=== PATIENT | male | born 1960 | race Caucasian/White ===

== ENCOUNTER 2021-04-01 06:07 | Outpatient (REF) | payer BC, SELFPAY ==
[2021-04-01 08:01] LABS: Hematocrit 42.7 % (42-52); Hemoglobin 14.7 g/dl (14.0-18.0); Mean Corpuscular HGB Conc 34.4 g/dl (31.0-36.0); Mean Corpuscular Hemoglobin 29.9 pg (27.0-33.0); Mean Corpuscular Volume 86.8 fL (80-98); Platelet Count 162 X10*3/uL (160-400); Red Blood Count 4.92 X10*6/uL (4.60-5.80); Red Cell Distribution Width 12.8 % (11.0-16.0); White Blood Count 7.3 X10*3/uL (4.8-10.8)
[2021-04-01 08:30] LABS: Alanine Aminotransferase 52 U/L (0-40); Albumin Level 4.5 g/dL (3.5-5.0); Alkaline Phosphatase 51 U/L (39-117); Anion Gap 15 (12-20); Aspartate Amino Transferase 28 U/L (5-37); Bilirubin Total 0.6 mg/dL (0.0-1.0); Blood Urea Nitrogen 16 mg/dL (9-16); Calcium 9.6 mg/dL (8.4-10.2); Carbon Dioxide 29 mmol/L (22-29); Chloride 101 mmol/L (96-108); Cholesterol 169 mg/dL; Estimated Glomerular Filt Rate > 60; Glucose Fasting 157 mg/dL (60-99); HDL Cholesterol 41 mg/dL; LDL Cholesterol Calculated 98 mg/dl; Sodium 141 mmol/L (135-145); Total Protein 7.1 g/dL (6.5-8.0); Triglycerides 152 mg/dL
[2021-04-01 08:52] LABS: Prostate Specific Antigen Scr 0.56 ng/mL (<0.05-4.0); TSH reflex Free T4 2.27 uIU/mL (0.32-4.0)
[2021-04-01 09:36] LABS: Creatinine Urine 169.72 mg/dL
[2021-04-01 09:43] LABS: Microalbum/Creatinine Ratio Ur 411.8 ug/mg cr
[2021-04-01 10:18] LABS: Estimated Average Glucose 183 mg/dL
== END 2021-04-01 06:08 | disposition home or self-care (01) ==
LOC: HO.LAB 06:07
PROVIDERS: PCP Physician Assistant; Visit Provider Physician Assistant
DX: I10 Essential (primary) hypertension (principal); E11.9 Type 2 diabetes mellitus without complications; Z12.5 Encounter for screening for malignant neoplasm of prostate
CPT/HCPCS: 36415; 80053; 80061; 82043; 83036; 84153; 84443; 85027

== ENCOUNTER → 2021-05-14 08:26 | Outpatient (BNVA) | payer BC, SELFPAY | PROVIDERS: PCP Physician Assistant; Visit Provider Orthopaedic Surgery ==

== ENCOUNTER 2021-11-15 07:11 | Outpatient (REF) | payer BC, SELFPAY ==
[2021-11-15 08:14] LABS: Hematocrit 40.9 % (42.0-52.0); Hemoglobin 13.8 g/dl (14.0-18.0); Mean Corpuscular HGB Conc 33.7 g/dl (31.0-36.0); Mean Corpuscular Hemoglobin 29.6 pg (27.0-33.0); Mean Corpuscular Volume 87.6 fL (80.0-98.0); Mean Platelet Volume 13.2 fL (9.4-12.4); Platelet Count 149 X10*3/uL (160-400); Red Blood Count 4.67 X10*6/uL (4.60-5.80); White Blood Count 7.1 X10*3/uL (4.8-10.8)
[2021-11-15 08:23] LABS: Estimated Average Glucose 180 mg/dL; Hemoglobin A1c % 7.9 %
[2021-11-15 08:34] LABS: Creatinine Urine 89.75 mg/dL
[2021-11-15 08:41] LABS: Alanine Aminotransferase 36 U/L (0-40); Albumin Level 4.4 g/dL (3.5-5.0); Alkaline Phosphatase 50 U/L (39-117); Anion Gap 11 (12-20); Aspartate Amino Transferase 21 U/L (5-37); Bilirubin Total 0.7 mg/dL (0.0-1.0); Blood Urea Nitrogen 18 mg/dL (9-16); Calcium 9.6 mg/dL (8.4-10.2); Carbon Dioxide 31 mmol/L (22-29); Chloride 102 mmol/L (96-108); Cholesterol 162 mg/dL; Estimated Glomerular Filt Rate > 60; Glucose Fasting 152 mg/dL (60-99); HDL Cholesterol 39 mg/dL; LDL Cholesterol Calculated 98 mg/dl; Potassium 4.1 mmol/L (3.3-5.1); Sodium 140 mmol/L (135-145); Total Protein 6.9 g/dL (6.5-8.0); Triglycerides 126 mg/dL
[2021-11-15 09:04] LABS: Microalbum/Creatinine Ratio Ur 551.5 ug/mg cr
== END 2021-11-15 07:12 | disposition home or self-care (01) ==
LOC: HO.LAB 07:11
PROVIDERS: PCP Physician Assistant; Visit Provider Physician Assistant
DX: I10 Essential (primary) hypertension (principal); E11.9 Type 2 diabetes mellitus without complications
CPT/HCPCS: 36415; 80053; 80061; 82043; 83036; 85027

== ENCOUNTER 2022-11-26 06:22 | Outpatient (REF) | payer BC, SELFPAY ==
[2022-11-26 07:19] LABS: Hematocrit 41.2 % (42.0-52.0); Hemoglobin 14.3 g/dl (14.0-18.0); Mean Corpuscular HGB Conc 34.7 g/dl (31.0-36.0); Mean Corpuscular Hemoglobin 30.2 pg (27.0-33.0); Mean Corpuscular Volume 87.1 fL (80.0-98.0); Mean Platelet Volume 12.3 fL (9.4-12.4); Platelet Count 159 X10*3/uL (160-400); Red Blood Count 4.73 X10*6/uL (4.60-5.80); Red Cell Distribution Width 13.2 % (11.0-16.0); White Blood Count 7.5 X10*3/uL (4.8-10.8)
[2022-11-26 07:47] LABS: Estimated Average Glucose 174 mg/dL; Hemoglobin A1c % 7.7 %
[2022-11-26 08:03] LABS: Alanine Aminotransferase 32 U/L (0-40); Albumin Level 4.4 g/dL (3.5-5.0); Alkaline Phosphatase 50 U/L (39-117); Anion Gap 15 (12-20); Aspartate Amino Transferase 20 U/L (5-37); Bilirubin Total 0.6 mg/dL (0.0-1.0); Blood Urea Nitrogen 18 mg/dL (9-16); Calcium 9.7 mg/dL (8.4-10.2); Carbon Dioxide 28 mmol/L (22-29); Chloride 101 mmol/L (96-108); Cholesterol 168 mg/dL; Estimated Glomerular Filt Rate > 60; Glucose Fasting 145 mg/dL (60-99); HDL Cholesterol 38 mg/dL; LDL Cholesterol Calculated 103 mg/dl; Potassium 4.1 mmol/L (3.3-5.1); Sodium 140 mmol/L (135-145); Total Protein 6.8 g/dL (6.5-8.0); Triglycerides 138 mg/dL
[2022-11-26 08:55] LABS: Creatinine Urine 107.23 mg/dL
[2022-11-26 09:00] LABS: TSH reflex Free T4 2.37 uIU/mL (0.32-4.0)
[2022-11-26 09:21] LABS: Microalbum/Creatinine Ratio Ur 681.7 ug/mg cr
== END 2022-11-26 06:23 | disposition home or self-care (01) ==
LOC: HO.LAB 06:22
PROVIDERS: PCP Physician Assistant; Visit Provider Physician Assistant
DX: E11.9 Type 2 diabetes mellitus without complications (principal); I10 Essential (primary) hypertension
CPT/HCPCS: 36415; 80053; 80061; 82043; 83036; 84443; 85027

== ENCOUNTER 2023-06-03 06:07 | Outpatient (REF) | payer BC, SELFPAY ==
[2023-06-03 07:00] LABS: Creatinine Urine 126.39 mg/dL
[2023-06-03 07:11] LABS: Microalbum/Creatinine Ratio Ur 690.7 ug/mg cr (<30)
[2023-06-03 07:21] LABS: Hematocrit 42.4 % (42.0-52.0); Hemoglobin 14.3 g/dl (14.0-18.0); Mean Corpuscular HGB Conc 33.7 g/dl (31.0-36.0); Mean Corpuscular Hemoglobin 29.9 pg (27.0-33.0); Mean Corpuscular Volume 88.5 fL (80.0-98.0); Mean Platelet Volume 12.9 fL (9.4-12.4); Platelet Count 167 X10*3/uL (160-400); Red Blood Count 4.79 X10*6/uL (4.60-5.80); Red Cell Distribution Width 12.9 % (11.0-16.0); White Blood Count 6.5 X10*3/uL (4.8-10.8)
[2023-06-03 07:41] LABS: Alanine Aminotransferase 28 U/L (0-40); Albumin Level 4.4 g/dL (3.5-5.0); Alkaline Phosphatase 49 U/L (39-117); Anion Gap 13 (12-20); Aspartate Amino Transferase 18 U/L (5-37); Bilirubin Total 0.4 mg/dL (0.0-1.0); Blood Urea Nitrogen 19 mg/dL (9-16); Calcium 9.6 mg/dL (8.4-10.2); Carbon Dioxide 31 mmol/L (22-29); Chloride 103 mmol/L (96-108); Cholesterol 154 mg/dL (<200); Estimated Glomerular Filt Rate > 60; Glucose Fasting 143 mg/dL (60-99); HDL Cholesterol 40 mg/dL (>40); LDL Cholesterol Calculated 94 mg/dL (<100); Potassium 3.9 mmol/L (3.3-5.1); Sodium 143 mmol/L (135-145); Total Protein 7.2 g/dL (6.5-8.0); Triglycerides 104 mg/dL (<150)
[2023-06-03 08:02] LABS: Prostate Specific Antigen Scr 0.66 ng/mL (<0.05-4.0)
== END 2023-06-03 06:08 | disposition home or self-care (01) ==
LOC: HO.LAB 06:07
PROVIDERS: PCP Physician Assistant; Visit Provider Physician Assistant
DX: Z12.5 Encounter for screening for malignant neoplasm of prostate (principal); E11.9 Type 2 diabetes mellitus without complications; I10 Essential (primary) hypertension
CPT/HCPCS: 36415; 80053; 80061; 82043; 82570; 84153; 85027

== ENCOUNTER 2023-06-10 12:53 | Outpatient (AMB) | payer BC, SELFPAY ==
[2023-06-10 12:56] VITALS: BP 160/96; PULSE 68; TEMP 36.7; O2SAT 98; BMI 32.1
--- NOTE | 2023-06-10 12:56 | A.OFFPC_ITS ---
Vital Signs 06/10/23 12:56 Height 5 ft 6 in Weight 199 lb 0.4 oz BMI 32.1 BP 160/96 H Blood Pressure Location Lt brachial Position Sitting Pulse 68 Pulse Source Pulse Oximeter Temp 98.0 F Temp Source Oral Pulse Oximetry (%) 98 Oxygen Delivery Method Room Air Intake Visit Reasons: Fever / Sinus Infection/ Shakiness Intake Note: pt states body chills, post nasal drip, sinus pain X5days Speech Lang Path Therapist Required: No Allergies erythromycin base Allergy (Unknown, Verified 06/10/23 12:56) Rash Tobacco use date assessed: 06/10/23 HPI HPI Comments History of Present Illness Details [age] year old male past medical history significant GERD,, hypertension, diabetes mellitus. Patient on Jose J Jarvis, presents today for same day a visit for 5 days of body aches, chills, has not check his temperature but feels like he has a fever and headache. Patient denies any sinus pain pressure, nasal congestion, cough, chest congestion. Patient states he did not swab himself for COVID. Patient encouraged to get swab for flu/rsv and covid. Patient replied well what would they do for my if I was positive . PAtient made aware if positive for COVID up to 5 days after symptoms start could treat with paxlovid. Also educated about symptomatic treatment. Patient made aware give 5 days of symptoms, likely viral infection and does not require antibiotic treatment at this time. [facility] Surgical History History of arthroscopy of shoulder History of surgery Family History (Updated 12/01/22 @ 13:36 by Hunter Jarvis PA-C) Father Diabetes Hypertension Liver tumor or cancer Mother No problems noted. Sister Eye cancer Social History (Updated 12/01/22 @ 13:37 by Hunter Jarvis PA-C) Housing: House Alcohol intake: never Patient Tobacco Use Status: Never used Tobacco e-Cigarette/Vaping Use: Never Used Second Hand Smoke Exposure: No Substance Use Type: Marijuana service: No Current occupational status: retired Cognitive needs: No Hearing needs: No Vision needs: No Questionnaire Thrive Questionnaire Date Thrive assessed: 12/01/22 AUDIT C Alcohol Use Questionnaire (AUDIT-C) 1. How often do you have a drink containing alcohol?: Never Total Score: 0 JULIEN-7 AMB Questionnaire JULIEN-7 Date JULIEN - 7 assessed: 12/01/22 Source: Developed by Drs. Christian Lorenzo, Emily Parham, Morro Soto and colleagues, with an educational jay jay from [employer]. Review of Systems Const Reports body aches, Reports chills, Reports fever(s) and Reports headache(s) Eyes Denies no additional complaints ENT Denies otalgia, Reports headache(s), Denies nasal congestion, Denies nasal discharge, Denies post nasal drip, Denies sinus pain, Denies sinus pressure and Denies sore throat Card Denies chest pain, Denies syncope, Denies rapid heart rate and Denies dyspnea Resp Denies cough and Denies dyspnea Musc Reports myalgias Neuro Denies syncope and Reports headache(s) Physical exam (Primary Care) Vital Signs: Last Vital Signs Temp 98.0 F 06/10/23 12:56 Pulse 68 06/10/23 12:56 BP 160/96 H 06/10/23 12:56 Pulse Ox 98 06/10/23 12:56 Oxygen Delivery Method Room Air 06/10/23 12:56 BMI result Body Mass Index 32.1 Tobacco/Smoking Status: Tobacco use Status Tobacco use date assessed 06/10/23 06/10/23 12:57 Patient Tobacco Use Status Never used Tobacco 06/10/23 12:57 e-Cigarette/Vaping Use Never Used 06/10/23 12:57 Thrive Assessment: Date of Thrive Assessment Date Thrive assessed 12/01/22 06/10/23 12:57 Const General: cooperative and no acute distress Orientation/consciousness: patient oriented x3 HENMT Head: Yes normocephalic and Yes atraumatic Ears: TM normal on the right and TM abnormal obstructed by cerumen on the left General nose exam: No nasal discharge present Face and sinus: Yes sinuses nontender Mouth: Normal oral and palatal mucosa present Throat: Yes posterior oropharynx normal and Yes uvula midline Eyes General: appearance normal, both eyes and all related structures Conjunctivae: conjunctivae normal Chest Chest palpation & inspection: normal inspection of the chest Resp Effort & Inspection: normal respiratory effort Auscultation: clear to auscultation bilaterally, no crackles, no rhonchi and no wheezes Cardio Rate: regular rate Rhythm: regular rhythm Heart sounds: S1 normal heart sound present and S2 normal heart sound present GI Inspection: Yes normal to inspection Neuro General: patient oriented x3 Extrem General: No edema Assessment and Plan Assessment & Plan (1) Fever: Code(s): R50.9 - Fever, unspecified (2) Body aches: Code(s): R52 - Pain, unspecified (3) Headache: Code(s): R51.9 - Headache, unspecified Plan: Patient advised swabbed for COVID, flu RSV given patient experiencing fever, body aches x5 days. Patient advised to treat symptomatically can take Tylenol and ibuprofen as needed for fever, chills, body aches and headaches. Please drink plently of fluids and rest. Symptoms consistent with viral infection. No need for antibiptic treatment at this time. Patient made he develops any new/ worsening symptoms such as sinus pain pressure, green/yellow sputum production and nasal drainage to follow up. Plan keep scheduled follow up with pcp. Orders: Orders SARS-CoV2/FLU/RSV Today R50.9 - Fever, unspecified Coding Level of Care Code Est Pt Level 3 (60403) Diagnoses Fever R50.9 Body aches R52 Headache R51.9
== END 2023-06-10 14:30 | disposition home or self-care (01) ==
PROVIDERS: PCP Physician Assistant; Visit Provider Nurse Practitioner Family
DX: R50.9 Fever, unspecified (principal); R51.9 Headache, unspecified
CPT/HCPCS: 99213

== ENCOUNTER 2023-06-15 08:03 | Outpatient (AMB) | payer BC, SELFPAY ==
[2023-06-15 08:41] VITALS: BP 150/96; PULSE 85; O2SAT 97; BMI 31.6
--- NOTE | 2023-06-15 08:41 | MHC.PC.OV ---
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 Accompanied by: Self / Same As Patient Allergies erythromycin base Allergy (Unknown, Verified 06/15/23 09:00) Rash Medication List - Last Reconciled 06/15/23 by Hunter Jarvis PA-C cholecalciferol (vitamin D3) 25 mcg PO DAILY lisinopril-hydrochlorothiazide 20-12.5 mg 1 tab PO BID 90 days metformin ER 2,000 mg (4 x 500 mg) PO DAILY 30 days omeprazole magnesium (Prilosec OTC) 20 mg PO DAILY rosuvastatin 20 mg PO DAILY Tobacco use date assessed: 06/10/23 Dental Screening Dental Screen Date: 06/15/23 Did you have a dental visit in the last 12 months?: No Did you have a dental problem in the last 6 months where you did not have access to dental care?: No Was dental information given to patient?: Patient has dentist HPI f/u DMII /HTN HPI Details Maurice is a 62 y/o M here today for a follow-up visit ? Pmhx significant fror HTN, HLd, Obesity, DMII. ? Concerns-- > recently recovering from COVID infection ? .. ? DMII:? Most recent A1c at 8.1., has been able to is a few lb since last office visit. .? patient reports he has been very active and decreasing his sugars and carbohydrates.? Unfortunately his diet has been poor and not following a low-carbohydrate diet. Patient continues to have microalbuminuria ? . ? HTN: REports his blood pressure has been stable, Systolics 120- 140s. Blood pressure today in office elevated .? Patient denies any headaches, vision issues or chest discomfort. ? .. ? HLD: Patient lipids have been well controlled will recheck lipid panel at next visit. ? . ? .. ? GERD : Report its controlled on PPI ( Prilosec 20 mg) .? He is followed by disc inspector and gets an EGD done every 5 years Laboratory Tests 11/26/22 11/26/22 06/03/23 06:29 06:29 06:10 Hgb Hgb A1c (Clinic) Hemoglobin A1c % 7.7 Cholesterol LDL Cholesterol, C alc Urine Microalbumin 731.0 873.0 06/03/23 06/03/23 06/15/23 06:16 06:16 08:43 Hgb 14.3 Hgb A1c (Clinic) 8.1 H Hemoglobin A1c % Cholesterol 154 LDL Cholesterol, C alc 94 Urine Microalbumin PFSH Surgical History History of surgery History of arthroscopy of shoulder Family History Father Diabetes Hypertension Liver tumor or cancer Mother No problems noted. Sister Eye cancer Housing: House Alcohol intake: never Patient Tobacco Use Status: Never used Tobacco e-Cigarette/Vaping Use: Never Used Second Hand Smoke Exposure: No Substance Use Type: Marijuana service: No Current occupational status: retired Cognitive needs: No Hearing needs: No Vision needs: No Questionnaire Thrive Questionnaire Date Thrive assessed: 12/01/22 JULIEN-7 AMB Questionnaire JULIEN-7 Date JULIEN - 7 assessed: 12/01/22 Source: Developed by Drs. Christian Lorenzo, Emily Parham, Morro Soto and colleagues, with an educational jay jay from [employer]. Review of Systems Const Denies headache(s) Eyes Denies loss of vision ENT Denies vertigo, Denies dizziness, Denies headache(s) and Denies sore throat Card Denies chest pain, Denies leg edema and Denies lightheadedness Resp Denies cough, Denies hemoptysis and Denies wheezing GI Denies abdominal pain, Denies melena, Denies constipation, Denies diarrhea and Denies vomiting Denies dysuria, Denies urinary frequency and Denies urinary urgency Musc Denies arthralgias, Denies joint swelling, Denies numbness and Denies tingling Neuro Denies Abnormal speech present, Denies behavioral changes, Denies vertigo, Denies dizziness, Denies headache(s), Denies loss of vision, Denies memory loss, Denies numbness and Denies tingling Psych Denies anxiety, Denies behavioral changes, Denies depression, Denies memory loss and Denies panic attacks Edward/Lymph Denies easy bleeding and Denies easy bruising Aller/Immun Denies wheezing Physical exam (Primary Care) Vital Signs: Last Vital Signs Pulse 85 06/15/23 08:41 BP 150/96 H 06/15/23 08:41 Pulse Ox 97 06/15/23 08:41 Oxygen Delivery Method Room Air 06/15/23 08:41 BMI result Body Mass Index 31.6 Tobacco/Smoking Status: Tobacco use Status Tobacco use date assessed 06/10/23 06/15/23 08:43 Patient Tobacco Use Status Never used Tobacco 06/15/23 08:43 e-Cigarette/Vaping Use Never Used 06/15/23 08:43 Thrive Assessment: Date of Thrive Assessment Date Thrive assessed 12/01/22 06/15/23 08:43 Const General: healthy appearing, no acute distress, alert and awake Nutritional Appearance: well nourished Orientation/consciousness: oriented to person, oriented to place and oriented to time HENMT Ears: TM's normal bilaterally General nose exam: Normal nasal mucous membranes and turbinates present Eyes Conjunctivae: conjunctivae normal Sclerae: sclerae normal Pupils: Equal, round and reactive pupils present Neck Neck: Yes no lymphadenopathy and Yes no JVD Thyroid: Thyroid normal Carotids: no bruits Resp Effort & Inspection: normal respiratory effort and not tachypneic Auscultation: no crackles, no rales, no rhonchi and no wheezes Cardio Rate: regular rate Rhythm: regular rhythm Heart sounds: no murmurs and normal S1 and S2 GI Palpation (GI): Soft to palpation, nontender, no hepatomegaly and no splenomegaly Auscultation: normal bowel sounds Skin General skin exam: no rashes or lesions noted and dry skin Neuro General: oriented to person, oriented to place and oriented to time Cranial nerves: Yes Equal, round and reactive pupils present Speech: No Abnormal speech present Gait exam (Neuro): Normal gait present Motor exam (neuro): no tremor noted Extrem Right upper extremity: full ROM Left upper extremity: full ROM Right lower extremity: full ROM; no edema Left lower extremity: full ROM; no edema Psych Mental Status: mental status grossly normal Speech and movement: Normal speech and movement present Affect: normal affect Attitude: cooperative Thought process: Normal thought process present Results AMB Hemoglobin A1c AMB Hemoglobin A1c 8.1 % Last Edit by Sofy Jones on 06/15/23 08:56 Results Reviewed Results Reviewed: Laboratory Last Values Hgb A1c (Clinic) 8.1 % (4.0-6.0) H 06/15/23 08:43 Assessment and Plan Assessment & Plan (1) HTN (hypertension): Code(s): I10 - Essential (primary) hypertension Qualifiers: Hypertension type: essential hypertension Qualified Code(s): I10 - Essential (primary) hypertension Plan: Blood pressures elevated today in office. He reports he has been sick with COVID recently and has been taking more ibuprofen for his myalgias. Will continue his current dose of antihypertensive medication with goal blood pressure to be below 140/90 (2) DMII (diabetes mellitus, type 2): Code(s): E11.9 - Type 2 diabetes mellitus without complications Qualifiers: Diabetes mellitus complication status: without complication Diabetes mellitus supervisor intermediates insulin use: without supervisor intermediates use Qualified Code(s): E11.9 - Type 2 diabetes mellitus without complications Plan: Patient's type 2 diabetes suboptimally controlled with A1c above 8. Will add on Ozempic for better blood sugar control and added benefit of weight loss. He continues to work on lifestyle modifications to reduce his A1c. Will continue his current dose of metformin at this time will continue to work on lifestyle modifications. Goal A1c to be below 7.0 (3) GERD (gastroesophageal reflux disease): Code(s): K21.9 - Gastro-esophageal reflux disease without esophagitis Qualifiers: Esophagitis presence: without esophagitis Qualified Code(s): K21.9 - Gastro-esophageal reflux disease without esophagitis Plan: Patient reports his GERD symptoms have been well maintained with daily use of Prilosec. He has been trying to stay way from gastric irritants (4) Obese: Code(s): E66.9 - Obesity, unspecified Qualifiers: Body mass index: BMI 33.0-33.9 Obesity classification: adult class 1 (BMI 30 - 34.9) Obesity type: due to excess calories Serious obesity comorbidity presence: with serious comorbidity Qualified Code(s): E66.09 - Other obesity due to excess calories; Z68.33 - Body mass index [BMI] 33.0-33.9, adult Plan: He does understand his BMI is over 30 will continue working on being more physically active and adapting to better eating habits to reduce his weight. (5) Impacted cerumen, bilateral: Code(s): H61.23 - Impacted cerumen, bilateral Plan: Released cerumen from left ear (6) Microalbuminuria: Code(s): R80.9 - Proteinuria, unspecified Plan: Continues to have elevated microalbuminuria. Has seen Nephrology the past. Will get ultrasound kidneys to evaluate for any cystic formations. Orders: Orders US renal BI 06/15/23 R80.9 - Proteinuria, unspecified Comprehensive [place]. Panel Fast 06/15/23 E11.9 - Type 2 diabetes mellitus without complications Complete Blood Count no Diff 06/15/23 E11.9 - Type 2 diabetes mellitus without complications AMB Hemoglobin A1c 06/15/23 E11.9 - Type 2 diabetes mellitus without complications Microalbumin, Random (w Creat) 06/15/23 I10 - Essential (primary) hypertension Lipid Panel 06/15/23 E11.9 - Type 2 diabetes mellitus without complications Medications: New semaglutide (Ozempic) for 4 weeks; then increase to 0.5 mg every week 0.25 mg (0.368 mL) subcut QWEEK 4 weeks 3 mL 1RF E11.9 - Type 2 diabetes mellitus without complications Coding Level of Care Code Est Pt Level 4 (60801) Diagnoses Essential hypertension I10 Hypertension type: essential hypertension Type 2 diabetes mellitus without complication, without long-term current use of insulin E11.9 Diabetes mellitus complication status: without complication Diabetes mellitus senior living insulin use: without senior living use Gastroesophageal reflux disease without esophagitis K21.9 Esophagitis presence: without esophagitis Class 1 obesity due to excess calories with serious comorbidity and body mass index (BMI) of 33.0 to 33.9 in adult E66.09; Z68.33 Body mass index: BMI 33.0-33.9 Obesity classification: adult class 1 (BMI 30 - 34.9) Obesity type: due to excess calories Serious obesity comorbidity presence: with serious comorbidity Impacted cerumen, bilateral H61.23 Microalbuminuria R80.9
== END 2023-06-15 09:40 | disposition home or self-care (01) ==
LOC: HO.HMGH 08:03
PROVIDERS: PCP Physician Assistant; Visit Provider Physician Assistant
DX: E11.9 Type 2 diabetes mellitus without complications (principal)
CPT/HCPCS: 83036; 99214

== ENCOUNTER 2023-06-24 11:47 | Outpatient (AMB) | payer BC, SELFPAY ==
[2023-06-24 13:36] VITALS: BP 160/90; PULSE 70; TEMP 36.1; O2SAT 96; BMI 31.8
--- NOTE | 2023-06-24 13:36 | MHC.OFFWIV ---
Intake Vital Signs 06/24/23 13:36 Height 5 ft 6 in Weight 197 lb BMI 31.8 BP 160/90 H Blood Pressure Location Rt brachial Position Sitting Pulse 70 Pulse Source Pulse Oximeter Temp 97.0 F Temp Source Temporal Artery Scan Pulse Oximetry (%) 96 Oxygen Delivery Method Room Air Intake Visit Reasons: EST/post covid symptoms/[phone] Intake Note: pt is here today for post covid symptoms start 21 days ago Patient Tobacco Use Status: Never used Tobacco Allergies erythromycin base Allergy (Unknown, Verified 06/24/23 13:37) Rash Do you need a note to return to daycare/school/sports/work: No HPI HPI Comments History of Present Illness Details This is a 62-year-old male with a past medical history of gastroesophageal reflux disease, hyperlipidemia, hypertension, spe-[id number]-[id number] diabetes who was diagnosed with COVID-19 21 days ago presenting for evaluation of a headache, ear pain, postnasal drip and shortness of breath with exertion that has been ongoing for the past 3 weeks. Patient denies having any new fevers, chills, chest pain, hemoptysis or sputum production. [facility] Surgical History History of surgery History of arthroscopy of shoulder Family History Father Diabetes Hypertension Liver tumor or cancer Mother No problems noted. Sister Eye cancer Social History Housing: House Alcohol intake: never Patient Tobacco Use Status: Never used Tobacco e-Cigarette/Vaping Use: Never Used Second Hand Smoke Exposure: No Substance Use Type: Marijuana service: No Current occupational status: retired Cognitive needs: No Hearing needs: No Vision needs: No Review of Systems Const All systems reviewed & are unremarkable except as noted in HPI and below Denies chills, Reports fatigue and Denies fever(s) Eyes Reports as per HPI ENT Reports no additional complaints, Reports dry mouth and Reports otalgia (bilateral) Card Reports as per HPI, Reports dyspnea and Reports dyspnea on exertion Resp Reports as per HPI, Reports cough, Denies hemoptysis, Denies excessive phlegm production, Reports dyspnea, Reports dyspnea on exertion and Denies wheezing GI Reports as per HPI Neuro Reports no additional complaints Psych Reports no additional complaints Endo Reports fatigue Aller/Immun Denies wheezing Physical Exam Vital Signs: Last Vital Signs Temp 97.0 F 06/24/23 13:36 Pulse 70 06/24/23 13:36 BP 160/90 H 06/24/23 13:36 Pulse Ox 96 06/24/23 13:36 Oxygen Delivery Method Room Air 06/24/23 13:36 BMI result Body Mass Index 31.8 Patient is afebrile and not hypoxic. Const General: cooperative, healthy appearing, comfortable, no acute distress, alert and awake; No ill appearing or lethargic Nutritional Appearance: well nourished Orientation/consciousness: patient oriented x3 and No lethargic Limitations: no limitations HEENT Head: Yes normal to inspection Ears: hearing grossly normal bilaterally, external ears normal, TM normal on the right and left TM abnormal (cerumen impaction) General nose exam: Normal external nose present Face and sinus: Yes normal facial exam and Yes sinuses nontender Mouth: Normal oral and palatal mucosa present Teeth and gingiva: dentition normal Throat: Yes postnasal drainage Eyes Conjunctivae: conjunctivae normal Sclerae: sclerae normal Pupils: Equal, round and reactive pupils present EOM: EOMs intact bilaterally Neck Lymphatic: no lymphadenopathy noted Resp Effort & Inspection: no audible wheezes, no cough and respiratory effort not decreased Auscultation: no wheezes and diminished lung sounds on the left in the lower lung grant Cardio Rate: regular rate Rhythm: regular rhythm Skin General skin exam: no rashes or lesions noted Neuro General: patient oriented x3 Cranial nerves: Yes Equal, round and reactive pupils present Psych Appearance: grossly normal Mental Status: mental status grossly normal Affect: normal affect Attitude: cooperative Insight: Good insight present (Psych) Judgement: Good judgement present (Psych) Results Reviewed Results Reviewed: CXR reviewed with patient. Assessment & Plan Assessment & Plan (1) Cough: Code(s): R05.9 - Cough, unspecified Qualifiers: Cough type: chronic Qualified Code(s): R05.3 - Chronic cough Plan: OTC antihistamine for postnasal drip, Tylenol as needed for headache and follow-up with PCP in 2 weeks; sooner for any worsening symptoms. (2) Post covid-19 condition, unspecified: Code(s): U09.9 - Post COVID-19 condition, unspecified Plan Follow up PCP 2 weeks for a reevaluation of symptoms. Orders: Orders XR chest 2V Today R05.9 - Cough, unspecified, U09.9 - Post COVID-19 condition, unspecified Coding Level of Care Code Est Pt Level 3 (70471) Diagnoses Chronic cough R05.3 Cough type: chronic Post covid-19 condition, unspecified U09.9 Time Spent (min) 25
== END 2023-06-24 14:46 | disposition home or self-care (01) ==
PROVIDERS: PCP Physician Assistant; Visit Provider Physician Assistant
DX: R05.3 Chronic cough (principal); U09.9 Post COVID-19 condition, unspecified
CPT/HCPCS: 99213

== ENCOUNTER 2023-06-24 13:55 | Outpatient (REF) | payer BC, SELFPAY ==
--- NOTE | ~2023-06-24 | XR_ITS ---
EXAMINATION: XR CHEST 2 VIEW CLINICAL INFORMATION: Cough, decreased breath sounds at left base COMPARISON: None TECHNIQUE: PA and lateral views of the chest obtained. FINDINGS: The lungs are clear. There are no pleural effusions. The cardiomediastinal silhouette is normal. XR/XR chest 2V IMPRESSION: No acute cardiopulmonary disease.
== END 2023-06-24 13:56 | disposition home or self-care (01) ==
LOC: HO.HMGCX 13:55
PROVIDERS: PCP Physician Assistant; Visit Provider Physician Assistant
DX: R05.9 Cough, unspecified (principal); U09.9 Post COVID-19 condition, unspecified
CPT/HCPCS: 71046

== ENCOUNTER 2023-07-16 09:36 | Outpatient (REF) | payer BC, SELFPAY ==
--- NOTE | ~2023-07-16 | US_ITS ---
EXAMINATION: US RETROPERITONEAL LIMITED (RENAL ONLY) CLINICAL INFORMATION: Proteinuria, unspecified. COMPARISON: None available. TECHNIQUE: Real-time imaging of the kidneys. FINDINGS: RIGHT KIDNEY: 10.6 x 6.9 x 6.4 cm (SAG x AP x TRV). The kidney is normal in size, contour, and echogenicity. Renal cortical thickness is normal. No renal calculi or hydronephrosis. Multiple benign parapelvic and cortical Bosniak class I renal cysts are noted, the largest measuring 1.9 cm which require no additional imaging or follow-up. No solid renal masses are seen. LEFT KIDNEY: 10.9 x 5.7 x 4.8 cm (SAG x AP x TRV). The kidney is normal in size, contour, and echogenicity. Renal cortical thickness is normal. No calculi or focal parenchymal lesions. Mild fullness in the left renal pelvis but no gross hydronephrosis. US/US renal BI IMPRESSION: No significant abnormality is seen.
== END 2023-07-16 09:37 | disposition home or self-care (01) ==
LOC: HO.US 09:36
PROVIDERS: PCP Physician Assistant; Visit Provider Physician Assistant
DX: R80.9 Proteinuria, unspecified (principal)
CPT/HCPCS: 76775

== ENCOUNTER 2023-07-22 09:37 | Outpatient (AMB) | payer BC, SELFPAY ==
--- NOTE | 2023-07-22 10:06 | MHC.PC.OV ---
Vital Signs 07/22/23 10:07 Height 5 ft 6 in Weight 188 lb BMI 30.3 BP 142/80 H Blood Pressure Location Lt brachial Position Sitting Pulse 89 Pulse Source Pulse Oximeter Pulse Oximetry (%) 99 Oxygen Delivery Method Room Air Intake Visit Reasons: Follow up post covid/ lingering symptoms Fly Fishing Guide Required: No Ground Helper Street Railway: Not Required per policy Accompanied by: Self / Same As Patient Allergies erythromycin base Allergy (Unknown, Verified 07/22/23 11:01) Rash Medication List - Last Reconciled 07/22/23 by Hunter Jarvis PA-C cholecalciferol (vitamin D3) 25 mcg PO DAILY lisinopril-hydrochlorothiazide 20-12.5 mg 1 tab PO BID 90 days metformin ER 2,000 mg (4 x 500 mg) PO DAILY 30 days omeprazole magnesium (Prilosec OTC) 20 mg PO DAILY rosuvastatin 20 mg PO DAILY semaglutide (Ozempic) 0.25 mg (0.368 mL) subcut QWEEK 4 weeks Tobacco use date assessed: 06/10/23 Dental Screening Dental Screen Date: 07/22/23 Did you have a dental visit in the last 12 months?: Yes Did you have a dental problem in the last 6 months where you did not have access to dental care?: No Was dental information given to patient?: Patient has dentist HPI Follow up post covid/ lingering symptoms HPI Details Patient is a 62-year-old male here today for follow-up visit. Ports having COVID 2 months ago. He continues to have bilateral ear and frontal sinus pressure and pain. Does report having a buzzing sensation in his head from time to time. He otherwise denies any fevers, cough, stiff neck or vision issues. He has been seen multiple times at the walk-in clinic and PCP office. He did get recent chest x-ray which was normal. [facility], [facility] Surgical History History of surgery History of arthroscopy of shoulder Family History Father Diabetes Hypertension Liver tumor or cancer Mother No problems noted. Sister Eye cancer Social History Housing: House Alcohol intake: never Patient Tobacco Use Status: Never used Tobacco e-Cigarette/Vaping Use: Never Used Second Hand Smoke Exposure: No Substance Use Type: Marijuana service: No Current occupational status: retired Cognitive needs: No Hearing needs: No Vision needs: No Questionnaire Thrive Questionnaire Date Thrive assessed: 12/01/22 JULIEN-7 AMB Questionnaire JULIEN-7 Date JULIEN - 7 assessed: 12/01/22 Source: Developed by Drs. Christian Lorenzo, Emily Parham, Morro Soto and colleagues, with an educational jay jay from [employer]. Review of Systems Const Denies headache(s) Eyes Denies loss of vision ENT Denies vertigo, Denies dizziness, Denies headache(s) and Denies sore throat Card Denies chest pain, Denies leg edema and Denies lightheadedness Resp Denies cough, Denies hemoptysis and Denies wheezing GI Denies abdominal pain, Denies melena, Denies constipation, Denies diarrhea and Denies vomiting Denies dysuria, Denies urinary frequency and Denies urinary urgency Musc Denies arthralgias, Denies joint swelling, Denies numbness and Denies tingling Neuro Denies Abnormal speech present, Denies behavioral changes, Denies vertigo, Denies dizziness, Denies headache(s), Denies loss of vision, Denies memory loss, Denies numbness and Denies tingling Psych Denies anxiety, Denies behavioral changes, Denies depression, Denies memory loss and Denies panic attacks Edward/Lymph Denies easy bleeding and Denies easy bruising Aller/Immun Denies wheezing Physical exam (Primary Care) Vital Signs: Last Vital Signs Pulse 89 07/22/23 10:07 BP 142/80 H 07/22/23 10:07 Pulse Ox 99 07/22/23 10:07 Oxygen Delivery Method Room Air 07/22/23 10:07 BMI result Body Mass Index 30.3 Tobacco/Smoking Status: Tobacco use Status Tobacco use date assessed 06/10/23 07/22/23 10:07 Patient Tobacco Use Status Never used Tobacco 07/22/23 10:07 e-Cigarette/Vaping Use Never Used 07/22/23 10:07 Thrive Assessment: Date of Thrive Assessment Date Thrive assessed 12/01/22 07/22/23 10:07 Const General: healthy appearing, no acute distress, alert and awake Nutritional Appearance: well nourished Orientation/consciousness: oriented to person, oriented to place and oriented to time HENMT Ears: TM's normal bilaterally General nose exam: Normal nasal mucous membranes and turbinates present Eyes Conjunctivae: conjunctivae normal Sclerae: sclerae normal Pupils: Equal, round and reactive pupils present Neck Neck: Yes no lymphadenopathy and Yes no JVD Thyroid: Thyroid normal Carotids: no bruits Resp Effort & Inspection: normal respiratory effort and not tachypneic Auscultation: no crackles, no rales, no rhonchi and no wheezes Cardio Rate: regular rate Rhythm: regular rhythm Heart sounds: no murmurs and normal S1 and S2 GI Palpation (GI): Soft to palpation, nontender, no hepatomegaly and no splenomegaly Auscultation: normal bowel sounds Skin General skin exam: no rashes or lesions noted and dry skin Neuro General: oriented to person, oriented to place and oriented to time Cranial nerves: Yes Equal, round and reactive pupils present Speech: No Abnormal speech present Gait exam (Neuro): Normal gait present Motor exam (neuro): no tremor noted Extrem Right upper extremity: full ROM Left upper extremity: full ROM Right lower extremity: full ROM; no edema Left lower extremity: full ROM; no edema Psych Mental Status: mental status grossly normal Speech and movement: Normal speech and movement present Affect: normal affect Attitude: cooperative Thought process: Normal thought process present Office Procedures Cerumen Removal From which ear canal was the cerumen removed: left Removal: irrigation and otoscope w/curette Notes: patient tolerated procedure well, no complications and ear canal clear 83181-Hlf Irrigation/Lavage Assessment and Plan Assessment & Plan (1) Sinus infection: Code(s): J32.9 - Chronic sinusitis, unspecified Qualifiers: Chronicity: acute Recurrence: recurrent Sinusitis location: frontal Qualified Code(s): J01.11 - Acute recurrent frontal sinusitis Plan: Patient has had a 8 week history status post COVID infection of frontal sinus pain and bilateral ear congestion and pain. Will supply with antibiotic and a prednisone taper for possible sinus infection. (2) Left ear impacted cerumen: Code(s): H61.22 - Impacted cerumen, left ear Plan: As per office note, left ear clear after lavage. Patient tolerated procedure well Medications: New amoxicillin-pot clavulanate 875-125 mg 1 tab PO BID 10 days 20 tabs 0RF J01.11 - Acute recurrent frontal sinusitis prednisone take 3 tabs x 2 days , take 2 tabs x 2 days , take 1 tab x 2 days 10 mg PO DIRECTED 6 days 12 tabs 0RF J01.11 - Acute recurrent frontal sinusitis nystatin administer 1/2 of dose in each side of the mouth 500,000 units (5 mL) PO BID 10 days PRN 60 mL 0RF mouth irritation B37.0 - Candidal stomatitis Coding Level of Care Code Est Pt Level 3 (16470) Diagnoses Acute recurrent frontal sinusitis J01.11 Chronicity: acute Recurrence: recurrent Sinusitis location: frontal Left ear impacted cerumen H61.22 CPT Codes Office Procedure - CPT: 19284-Hmt Irrigation/Lavage ([id number])
[2023-07-22 10:07] VITALS: BP 142/80; PULSE 89; O2SAT 99; BMI 30.3
== END 2023-07-22 11:30 | disposition home or self-care (01) ==
PROVIDERS: PCP Physician Assistant; Visit Provider Physician Assistant
DX: J01.11 Acute recurrent frontal sinusitis (principal); H61.22 Impacted cerumen, left ear
CPT/HCPCS: 69210; 99213

== ENCOUNTER 2023-09-15 06:05 | Outpatient (REF) | payer BC, SELFPAY ==
[2023-09-15 07:00] LABS: Hematocrit 43.8 % (42.0-52.0); Hemoglobin 15.4 g/dl (14.0-18.0); Mean Corpuscular HGB Conc 35.2 g/dl (31.0-36.0); Mean Corpuscular Hemoglobin 30.7 pg (27.0-33.0); Mean Corpuscular Volume 87.4 fL (80.0-98.0); Mean Platelet Volume 12.8 fL (9.4-12.4); Platelet Count 163 X10*3/uL (160-400); Red Blood Count 5.01 X10*6/uL (4.60-5.80); Red Cell Distribution Width 13.1 % (11.0-16.0); White Blood Count 7.6 X10*3/uL (4.8-10.8)
[2023-09-15 07:13] LABS: Alanine Aminotransferase 23 U/L (0-40); Albumin Level 4.4 g/dL (3.5-5.0); Alkaline Phosphatase 42 U/L (39-117); Anion Gap 13 (12-20); Aspartate Amino Transferase 15 U/L (5-37); Bilirubin Total 0.5 mg/dL (0.0-1.0); Blood Urea Nitrogen 17 mg/dL (9-16); Calcium 9.8 mg/dL (8.4-10.2); Carbon Dioxide 32 mmol/L (22-29); Chloride 102 mmol/L (96-108); Cholesterol 166 mg/dL (<200); Estimated Glomerular Filt Rate > 60; Glucose Fasting 123 mg/dL (60-99); HDL Cholesterol 40 mg/dL (>40); LDL Cholesterol Calculated 97 mg/dL (<100); Potassium 3.7 mmol/L (3.3-5.1); Sodium 143 mmol/L (135-145); Total Protein 7.4 g/dL (6.5-8.0); Triglycerides 149 mg/dL (<150)
[2023-09-15 08:21] LABS: Creatinine Urine 193.11 mg/dL
[2023-09-15 08:41] LABS: Microalbum/Creatinine Ratio Ur 273.9 ug/mg cr (<30)
== END 2023-09-15 06:06 | disposition home or self-care (01) ==
LOC: HO.LAB 06:05
PROVIDERS: PCP Physician Assistant; Visit Provider Physician Assistant
DX: E11.9 Type 2 diabetes mellitus without complications (principal); I10 Essential (primary) hypertension
CPT/HCPCS: 36415; 80053; 80061; 82043; 82570; 85027

== ENCOUNTER 2023-09-22 07:49 | Outpatient (AMB) | payer BC, SELFPAY ==
[2023-09-22 08:28] VITALS: BP 132/80; BMI 30.5
--- NOTE | 2023-09-22 08:28 | MHC.PC.OV ---
Vital Signs 09/22/23 08:28 Height 5 ft 6 in Weight 189 lb BMI 30.5 BP 132/80 Blood Pressure Location Lt brachial Position Sitting Intake Visit Reasons: Follow-up diabetes Intake Note: Patient here for a follow up DM Product Assurance Engineer Required: No Accompanied by: Self / Same As Patient Allergies erythromycin base Allergy (Unknown, Verified 09/22/23 08:41) Rash Medication List - Last Reconciled 09/22/23 by Hunter Jarvis PA-C cholecalciferol (vitamin D3) 25 mcg PO DAILY lisinopril-hydrochlorothiazide 20-12.5 mg 1 tab PO BID 90 days omeprazole magnesium (Prilosec OTC) 20 mg PO DAILY rosuvastatin 20 mg PO DAILY semaglutide (Ozempic) 0.25 mg (0.368 mL) subcut QWEEK 4 weeks Tobacco use date assessed: 09/22/23 Fall risk assessment: No Falls in past year Last assessed Fall Risk: 09/22/23 Dental Screening Dental Screen Date: 09/22/23 Did you have a dental visit in the last 12 months?: No Did you have a dental problem in the last 6 months where you did not have access to dental care?: No Was dental information given to patient?: Patient has dentist HPI Follow-up diabetes HPI Details Maurice is a 63 y/o M here today for a follow-up visit ? Pmhx significant fror HTN, HLd, Obesity, DMII. ? Concerns-- > recently recovering from COVID infection ? .. ? DMII:? Most recent A1c is 6.7 from 8.1., has been able to is a few lb since last office visit. Reports he was sick for two months with COVID in oral thrush. Now doing much better. Has lost weight. He is discontinue the use of metformin. He continues on Ozempic 0.5 mg weekly Patient continues to have microalbuminuria though has improved ? . ? HTN: REports his blood pressure has been stable, Systolics 120- 140s. Blood pressure today in office acceptable .? Patient denies any headaches, vision issues or chest discomfort. ? .. ? HLD: Patient lipids have been well controlled will recheck lipid panel at next visit. ? . ? .. ? GERD : Report its controlled on PPI ( Prilosec 20 mg) .? 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 Sister Eye cancer Social History Housing: House Alcohol intake: never Patient Tobacco Use Status: Never used Tobacco e-Cigarette/Vaping Use: Never Used Second Hand Smoke Exposure: No Substance Use Type: Marijuana service: No Current occupational status: retired Cognitive needs: No Hearing needs: No Vision needs: No Questionnaire PHQ-9 Over the last 2 weeks, how often have you been bothered by any of the following problems? 1. Little interest or pleasure in doing things: not at all 2. Feeling down, depressed, or hopeless: not at all 3. Trouble falling or staying asleep, or sleeping too much: not at all 4. Feeling tired or having little energy: not at all 5. Poor appetite or overeating: not at all 6. Feeling bad about yourself - or that you are a failure or have let yourself or your family down: not at all 7. Trouble concentrating on things, such as reading the newspaper or watching television: not at all 8. Moving or speaking so slowly that other people could have noticed. Or the opposite - being so fidgety or restless that you have been moving around a lot more than usual: not at all 9. Thoughts that you would be better off or of hurting yourself in some way: not at all Total score: 0 Depression Screening Interpretation: Negative Depression Screening Done: Yes 32810 - PHQ-9 Billing: Yes Source: Developed by Drs. Christian Lorenzo, Morro Rosales and colleagues, with an educational jay jay from [employer]. Thrive Questionnaire Date Thrive assessed: 09/22/23 I am a: Patient What is your living situation today?: I have a steady place to live Within the past 12 months, did the food you bought not last and you didn't have the money to get more?: Never true Within the past 12 months, did you worry whether your food would run out before you got money to buy more?: Never true Do you have trouble paying for medicines?: No Do you have trouble getting transportation to medical appointments?: No Do you have trouble paying your heating and electricity bill?: No Do you have trouble taking care of your child, family member or friend?: No Do you have trouble with day-to-day activities such as bathing, preparing meals, shopping, managing finances, etc.?: No Are you currently unemployed and looking for a job?: No Are you interested in more education?: No Please select the resources that you would like help with: None Currently or been in a relationship where the following occur: no concerns reported THRIVE Score: 0 AUDIT C Alcohol Use Questionnaire (AUDIT-C) 1. How often do you have a drink containing alcohol?: Never Total Score: 0 JULIEN-7 AMB Questionnaire JULIEN-7 Date JULIEN - 7 assessed: 09/22/23 Feeling nervous, anxious, or on edge: 0 = Not at all Not being able to stop or control worryin = Not at all Worrying too much about different things: 0 = Not at all Trouble relaxin = Not at all Being so restless that it is hard to sit still: 0 = Not at all Becoming easily annoyed or irritable: 0 = Not at all Feeling afraid as if something awful might happen: 0 = Not at all Total JULIEN-7 score (0-4 normal; 5-9 mild; 10-14 moderate; 15-21 severe): 0 Source: Developed by Emily Ya Kurt Kroenke and colleagues, with an educational jay jay from [employer]. JULIEN-7 Assessment Billing JULIEN-7 Assessment Tool: JULIEN-7 Assessment 65803 Review of Systems Const Denies headache(s) Eyes Denies loss of vision ENT Denies vertigo, Denies dizziness, Denies headache(s) and Denies sore throat Card Denies chest pain, Denies leg edema and Denies lightheadedness Resp Denies cough, Denies hemoptysis and Denies wheezing GI Denies abdominal pain, Denies melena, Denies constipation, Denies diarrhea and Denies vomiting Denies dysuria, Denies urinary frequency and Denies urinary urgency Musc Denies arthralgias, Denies joint swelling, Denies numbness and Denies tingling Neuro Denies Abnormal speech present, Denies behavioral changes, Denies vertigo, Denies dizziness, Denies headache(s), Denies loss of vision, Denies memory loss, Denies numbness and Denies tingling Psych Denies anxiety, Denies behavioral changes, Denies depression, Denies memory loss and Denies panic attacks Edward/Lymph Denies easy bleeding and Denies easy bruising Aller/Immun Denies wheezing Physical exam (Primary Care) Vital Signs: Last Vital Signs BP 132/80 09/22/23 08:28 BMI result Body Mass Index 30.5 BMI Assessment/Plan discussion: High Tobacco/Smoking Status: Tobacco use Status Tobacco use date assessed 09/22/23 09/22/23 08:38 Patient Tobacco Use Status Never used Tobacco 09/22/23 08:38 e-Cigarette/Vaping Use Never Used 09/22/23 08:38 PHQ-9: PHQ-9 Score PHQ-9: Total score 0 09/22/23 08:38 Depression Screening Interpretation: Negative Thrive Assessment: Date of Thrive Assessment Date Thrive assessed 09/22/23 09/22/23 08:38 Currently or been in a relationship where the following occur: no concerns reported Const Other: OBESE General: healthy appearing, no acute distress, alert and awake Nutritional Appearance: well nourished Orientation/consciousness: oriented to person, oriented to place and oriented to time HENMT Ears: TM's normal bilaterally General nose exam: Normal nasal mucous membranes and turbinates present Eyes Conjunctivae: conjunctivae normal Sclerae: sclerae normal Pupils: Equal, round and reactive pupils present Neck Neck: Yes no lymphadenopathy and Yes no JVD Thyroid: Thyroid normal Carotids: no bruits Resp Effort & Inspection: normal respiratory effort and not tachypneic Auscultation: no crackles, no rales, no rhonchi and no wheezes Cardio Rate: regular rate Rhythm: regular rhythm Heart sounds: no murmurs and normal S1 and S2 GI Palpation (GI): Soft to palpation, nontender, no hepatomegaly and no splenomegaly Auscultation: normal bowel sounds Skin General skin exam: no rashes or lesions noted and dry skin Neuro General: oriented to person, oriented to place and oriented to time Cranial nerves: Yes Equal, round and reactive pupils present Speech: No Abnormal speech present Gait exam (Neuro): Normal gait present Motor exam (neuro): no tremor noted Extrem Right upper extremity: full ROM Left upper extremity: full ROM Right lower extremity: full ROM; no edema Left lower extremity: full ROM; no edema Psych Mental Status: mental status grossly normal Speech and movement: Normal speech and movement present Affect: normal affect Attitude: cooperative Thought process: Normal thought process present Results AMB Hemoglobin A1c AMB Hemoglobin A1c 6.7 % Last Edit by IRA Munguia on 09/22/23 08:38 Results Reviewed Results Reviewed: Laboratory Last Values Hgb A1c (Clinic) 6.7 % (4.0-6.0) H 09/22/23 08:38 Assessment and Plan Assessment & Plan (1) HTN (hypertension): Code(s): I10 - Essential (primary) hypertension Qualifiers: Hypertension type: essential hypertension Qualified Code(s): I10 - Essential (primary) hypertension Plan: Patient's blood pressure acceptable today in office. Has lost weight since last office visit. Feeling much better status post COVID infection.. Will continue his current dose of antihypertensive medication with goal blood pressure to be below 140/90 (2) DMII (diabetes mellitus, type 2): Code(s): E11.9 - Type 2 diabetes mellitus without complications Qualifiers: Diabetes mellitus jail insulin use: without jail use Diabetes mellitus complication status: without complication Qualified Code(s): E11.9 - Type 2 diabetes mellitus without complications Plan: Patient's type 2 diabetes suboptimally controlled with A1c above 8. Will add on Ozempic for better blood sugar control and added benefit of weight loss. He continues to work on lifestyle modifications to reduce his A1c. Will continue his current dose of metformin at this time will continue to work on lifestyle modifications. Goal A1c to be below 7.0 (3) GERD (gastroesophageal reflux disease): Code(s): K21.9 - Gastro-esophageal reflux disease without esophagitis Qualifiers: Esophagitis presence: without esophagitis Qualified Code(s): K21.9 - Gastro-esophageal reflux disease without esophagitis Plan: Patient reports his GERD symptoms have been well maintained with daily use of Prilosec. He has been trying to stay way from gastric irritants (4) Microalbuminuria: Code(s): R80.9 - Proteinuria, unspecified Plan: Continues to have elevated microalbuminuria. Has seen Nephrology the past. Will get ultrasound kidneys to evaluate for any cystic formations. Orders: Orders Comprehensive [place]. Panel Fast Today I10 - Essential (primary) hypertension Lipid Panel Today E11.9 - Type 2 diabetes mellitus without complications Complete Blood Count no Diff Today E11.9 - Type 2 diabetes mellitus without complications Prostate Specific Antigen Scr Today E11.9 - Type 2 diabetes mellitus without complications, Z12.5 - Encounter for screening for malignant neoplasm of prostate Medications: Changed From semaglutide (Ozempic) for 4 weeks; then increase to 0.5 mg every week 0.25 mg (0.368 mL) subcut QWEEK 4 weeks 3 mL 1RF E11.9 - Type 2 diabetes mellitus without complications To semaglutide (Ozempic) for 4 weeks; then increase to 0.5 mg every week 0.5 mg (0.736 mL) subcut QWEEK 4 weeks 3 mL 3RF E11.9 - Type 2 diabetes mellitus without complications Coding Level of Care Code Est Pt Level 4 (37049) Diagnoses Essential hypertension I10 Hypertension type: essential hypertension Type 2 diabetes mellitus without complication, without long-term current use of insulin E11.9 Diabetes mellitus manager terminal insulin use: without manager terminal use Diabetes mellitus complication status: without complication Gastroesophageal reflux disease without esophagitis K21.9 Esophagitis presence: without esophagitis Microalbuminuria R80.9 Additional Codes JULIEN-7 Assessment Billing - JULIEN-7 Assessment Tool: JULIEN-7 Assessment [id number] ([id number])
== END 2023-09-22 08:58 | disposition home or self-care (01) ==
PROVIDERS: PCP Physician Assistant; Visit Provider Physician Assistant
DX: I10 Essential (primary) hypertension (principal); E11.9 Type 2 diabetes mellitus without complications; K21.9 Gastro-esophageal reflux disease without esophagitis; R80.9 Proteinuria, unspecified; Z13.9 Encounter for screening, unspecified
CPT/HCPCS: 83036; 99214

== ENCOUNTER 2024-03-24 05:57 | Outpatient (REF) | payer BC, SELFPAY ==
[2024-03-24 07:15] LABS: Hematocrit 42.8 % (42.0-52.0); Hemoglobin 14.8 g/dl (14.0-18.0); Mean Corpuscular HGB Conc 34.6 g/dl (31.0-36.0); Mean Corpuscular Hemoglobin 30.7 pg (27.0-33.0); Mean Corpuscular Volume 88.8 fL (80.0-98.0); Mean Platelet Volume 12.6 fL (9.4-12.4); Platelet Count 184 X10*3/uL (160-400); Red Blood Count 4.82 X10*6/uL (4.60-5.80); White Blood Count 6.6 X10*3/uL (4.8-10.8)
[2024-03-24 07:40] LABS: Alanine Aminotransferase 16 U/L (0-40); Albumin Level 4.4 g/dL (3.5-5.0); Alkaline Phosphatase 89 U/L (39-117); Anion Gap 12 (12-20); Aspartate Amino Transferase 17 U/L (5-37); Bilirubin Total 0.5 mg/dL (0.0-1.0); Blood Urea Nitrogen 18 mg/dL (9-16); Calcium 10.2 mg/dL (8.4-10.2); Carbon Dioxide 30 mmol/L (22-29); Chloride 102 mmol/L (96-108); Cholesterol 155 mg/dL (<200); Estimated Glomerular Filt Rate > 60; Glucose Fasting 115 mg/dL (60-99); HDL Cholesterol 43 mg/dL (>40); LDL Cholesterol Calculated 92 mg/dL (<100); Potassium 4.2 mmol/L (3.3-5.1); Sodium 140 mmol/L (135-145); Total Protein 7.4 g/dL (6.5-8.0); Triglycerides 103 mg/dL (<150)
[2024-03-24 08:02] LABS: Prostate Specific Antigen Scr 0.99 ng/mL (<0.05-4.0)
== END 2024-03-24 05:58 | disposition home or self-care (01) ==
LOC: HO.LAB 05:57
PROVIDERS: PCP Physician Assistant; Visit Provider Physician Assistant
DX: I10 Essential (primary) hypertension (principal); Z12.5 Encounter for screening for malignant neoplasm of prostate; E11.9 Type 2 diabetes mellitus without complications
CPT/HCPCS: 36415; 80053; 80061; 84153; 85027

== ENCOUNTER 2024-03-29 07:59 | Outpatient (AMB) | payer BC, SELFPAY ==
[2024-03-29 08:03] VITALS: BP 128/72; PULSE 67; O2SAT 98; BMI 28.4
--- NOTE | 2024-03-29 08:03 | MHC.PC.OV ---
Vital Signs 03/29/24 08:03 Height 5 ft 6 in Weight 176 lb BMI 28.4 BP 128/72 Blood Pressure Location Lt brachial Position Sitting Pulse 67 Pulse Source Pulse Oximeter Pulse Oximetry (%) 98 Oxygen Delivery Method Room Air Intake Visit Reasons: ANNUAL Allergies erythromycin base Allergy (Unknown, Verified 03/29/24 08:16) Rash Medication List - Last Reconciled 03/29/24 by Hunter Jarvis PA-C cholecalciferol (vitamin D3) 25 mcg PO DAILY lisinopril-hydrochlorothiazide 20-12.5 mg 1 tab PO BID 90 days omeprazole magnesium (Prilosec OTC) 20 mg PO DAILY rosuvastatin 20 mg PO DAILY semaglutide (Ozempic) 0.5 mg (0.736 mL) subcut QWEEK 4 weeks Tobacco use date assessed: 03/29/24 Fall risk assessment: No Falls in past year Last assessed Fall Risk: 03/29/24 Dental Screening Dental Screen Date: 03/29/24 Did you have a dental visit in the last 12 months?: No Did you have a dental problem in the last 6 months where you did not have access to dental care?: No Was dental information given to patient?: No HPI ANNUAL HPI Details Maurice is a 63 y/o M here today for a follow-up visit ? Pmhx significant fror HTN, HLd, Obesity, Cervical spine disc disease, DMII. ? .. ? DMII:? Type 2 diabetes has been much better controlled, he reports sugars have been much better., has lost significant amount of weight since starting Ozempic. He continues on Ozempic 0.5 mg weekly Patient continues to have microalbuminuria though has improved ? . ? HTN: REports his blood pressure has been stable, Systolics 120- 140s. Blood pressure today in office acceptable .? Patient denies any headaches, vision issues or chest discomfort. He is currently on lisinopril hydrochlorothiazide 2012.5 b.i.d.. PLAN: Due to weight loss will decrease his blood pressure med dose to 40 mg lisinopril daily. ? .. ? HLD: Patient continues on statin therapy without side effect. Most recent lipid panel showing excellent control of his total cholesterol LDL . .. 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 Was also found to cervical disc disease with to herniated disc in his cervical spine. Since then he has not been able to work and has been on disability. Has seen many habilitation training specialist and paintings conservator and was on narcotic pain medication for a few years though has been able to wean himself off. Has been able to manage his pain recently with marijuana. Today presents paperwork for student loan forgiveness due to his disability and not able to work. ? . ? .. ? GERD : Report its controlled on PPI ( Prilosec 20 mg) .? He is followed by polymerization engineer and gets an EGD done every 5 years Colonoscopy: Has gotten Colon 2021 Dr Hedrick- repeat 5 years.? Has been on PPI therapy for many years. ? .. ? Vaccines: Up-to-date with flu tetanus and Needs PCV-20 (declines today), Declines flu. UTD with COVID Vac, considering [facility] Laboratory Tests 09/22/23 03/24/24 08:38 06:09 RBC 4.82 Hgb 14.8 Creatinine 1.00 Fasting Glucose 115 H Hgb A1c (Clinic) 6.7 H Cholesterol 155 LDL Cholesterol, C alc 92 PSA Screen 0.99 PFSH Surgical History History of surgery History of arthroscopy of shoulder Family History Father Diabetes Hypertension Liver tumor or cancer Thyroid cancer Mother No problems noted. Sister Eye cancer Social History Housing: House Alcohol intake: never Patient Tobacco Use Status: Never used Tobacco Tobacco use type: Cigarette e-Cigarette/Vaping Use: Never Used Second Hand Smoke Exposure: No Substance Use Type: Marijuana service: No Current occupational status: retired Cognitive needs: No Hearing needs: No Vision needs: No Questionnaire PHQ-9 Over the last 2 weeks, how often have you been bothered by any of the following problems? 1. Little interest or pleasure in doing things: not at all 2. Feeling down, depressed, or hopeless: not at all 3. Trouble falling or staying asleep, or sleeping too much: not at all 4. Feeling tired or having little energy: not at all 5. Poor appetite or overeating: not at all 6. Feeling bad about yourself - or that you are a failure or have let yourself or your family down: not at all 7. Trouble concentrating on things, such as reading the newspaper or watching television: not at all 8. Moving or speaking so slowly that other people could have noticed. Or the opposite - being so fidgety or restless that you have been moving around a lot more than usual: not at all 9. Thoughts that you would be better off or of hurting yourself in some way: not at all Total score: 0 Depression Screening Interpretation: Negative Depression Screening Done: Yes 30097 - PHQ-9 Billing: Yes Source: Developed by Drs. Christian Lorenzo, Emily Parham, Morro Soto and colleagues, with an educational jay jay from [employer]. Thrive Questionnaire Date Thrive assessed: 03/29/24 I am a: Patient What is your living situation today?: I have a steady place to live Within the past 12 months, did the food you bought not last and you didn't have the money to get more?: Never true Within the past 12 months, did you worry whether your food would run out before you got money to buy more?: Never true Do you have trouble paying for medicines?: No Do you have trouble getting transportation to medical appointments?: No Do you have trouble paying your heating and electricity bill?: No Do you have trouble taking care of your child, family member or friend?: No Do you have trouble with day-to-day activities such as bathing, preparing meals, shopping, managing finances, etc.?: No Are you currently unemployed and looking for a job?: No Are you interested in more education?: No Please select the resources that you would like help with: None Currently or been in a relationship where the following occur: No concerns reported THRIVE Score: 0 AUDIT C Alcohol Use Questionnaire (AUDIT-C) 1. How often do you have a drink containing alcohol?: Never Total Score: 0 JULIEN-7 AMB Questionnaire JULIEN-7 Date JULIEN - 7 assessed: 03/29/24 Feeling nervous, anxious, or on edge: 0 = Not at all Not being able to stop or control worryin = Not at all Worrying too much about different things: 0 = Not at all Trouble relaxin = Not at all Being so restless that it is hard to sit still: 0 = Not at all Becoming easily annoyed or irritable: 0 = Not at all Feeling afraid as if something awful might happen: 0 = Not at all Total JULIEN-7 score (0-4 normal; 5-9 mild; 10-14 moderate; 15-21 severe): 0 Source: Developed by Drs. Christian Lorenzo, Emily Parham, Morro Soto and colleagues, with an educational jay jay from [employer]. JULIEN-7 Assessment Billing JULIEN-7 Assessment Tool: JULIEN-7 Assessment 91695 Review of Systems Const Denies body aches, Denies chills, Denies excessive sweating, Denies fatigue, Denies fever(s) and Denies headache(s) Eyes Denies blurry vision ENT Denies dysphagia, Denies vertigo, Denies dizziness, Denies headache(s), Denies hearing loss and Denies tinnitus Card Denies chest pain, Denies chest pain with activity, Denies syncope, Denies irregular heart rhythm and Denies dyspnea Resp Denies chest congestion, Denies cough, Denies hemoptysis, Denies dyspnea and Denies wheezing GI Denies abdominal pain, Denies melena, Denies hematochezia, Denies coffee ground emesis, Denies dysphagia, Denies diarrhea, Denies nausea and Denies vomiting Denies difficulty urinating, Denies dysuria, Denies urinary frequency, Denies urinary hesitancy and Denies urinary urgency Musc Denies arthralgias, Denies limited range of motion, Denies muscle cramps and Denies muscle weakness Skin/Breast Denies rash and Denies skin ulcer Neuro Denies Abnormal speech present, Denies confusion, Denies vertigo, Denies dizziness, Denies syncope, Denies headache(s), Denies memory loss and Denies seizure-like activity Psych Denies anxiety, Denies confusion, Denies depression, Denies memory loss, Denies panic attacks and Denies paranoia Endo Denies excessive sweating, Denies fatigue, Denies flushing, Denies polydipsia and Denies polyuria Aller/Immun Denies wheezing Physical exam (Primary Care) Vital Signs: Last Vital Signs Pulse 67 03/29/24 08:03 BP 128/72 03/29/24 08:03 Pulse Ox 98 03/29/24 08:03 Oxygen Delivery Method Room Air 03/29/24 08:03 BMI result Body Mass Index 28.4 Tobacco/Smoking Status: Tobacco use Status Tobacco use date assessed 03/29/24 03/29/24 08:08 Patient Tobacco Use Status Never used Tobacco 03/29/24 08:08 Tobacco use type Cigarette 03/29/24 08:08 e-Cigarette/Vaping Use Never Used 03/29/24 08:08 PHQ-9: PHQ-9 Score PHQ-9: Total score 0 03/29/24 08:21 Depression Screening Interpretation: Negative Thrive Assessment: Date of Thrive Assessment Date Thrive assessed 03/29/24 03/29/24 08:08 Currently or been in a relationship where the following occur: No concerns reported Const General: cooperative, comfortable, no acute distress, alert and awake; No confusion Orientation/consciousness: oriented to person, oriented to place, patient oriented x3 and No confusion HENMT Head: Yes normocephalic Ears: external ears normal and TM's normal bilaterally Face and sinus: No sinus tenderness Mouth: Normal oral and palatal mucosa present and tongue normal Teeth and gingiva: dentition normal and gingiva normal Throat: Yes posterior oropharynx normal, Yes tonsils normal and Yes uvula midline Eyes Conjunctivae: conjunctivae normal Sclerae: sclerae normal Pupils: Equal, round and reactive pupils present EOM: EOMs intact bilaterally Direct Ophthalmoscopy: No no photophobia Neck Neck: Yes no lymphadenopathy, No tender and Yes no JVD Thyroid: Thyroid normal Carotids: no bruits Chest Chest palpation & inspection: no tenderness Resp Effort & Inspection: normal respiratory effort, no audible wheezes, not labored and no stridor Auscultation: no crackles, no rales, no rhonchi and no wheezes Cardio Jugular venous distension: no JVD Rate: regular rate, not bradycardic and not tachycardic Rhythm: regular rhythm Bruits: no carotid bruits Peripheral pulses: Peripheral pulses 2+ throughout GI Inspection: Yes normal to inspection, No abdominal wall ecchymosis and No visible herniation Palpation (GI): Soft to palpation, nontender, no guarding, not rigid and No hepatosplenomegaly present Auscultation: normoactive bowel sounds General: Yes no CVA tenderness Back/Spine/Pelvis Back: no CVA tenderness and No back tenderness Cervical Spine: cervical ROM normal Thoracic/Lumbar Spine: thoracic and lumbar spine normal to inspection, straight leg raise negative bilaterally, No thoraco-lumbar ROM limited and No lumbar spinal tenderness Skin Lesions: no lesions Rashes: no rashes Wounds: no wounds Neuro General: oriented to person, oriented to place, patient oriented x3, CN's II-XI intact bilaterally and No confusion Cranial nerves: Yes Equal, round and reactive pupils present and Yes Normal accommodation reflex present Cognition (Neuro): normal cognition Speech: No Abnormal speech present Gait exam (Neuro): Normal gait present Motor exam (neuro): 5/5 motor strength present throughout Extrem Right upper extremity: full ROM; no cyanosis Left upper extremity: full ROM; no cyanosis Right lower extremity: no edema Left lower extremity: no edema Psych Appearance: grossly normal Mental Status: mental status grossly normal Affect: normal affect Attitude: cooperative Thought process: Normal thought process present Assessment and Plan Assessment & Plan (1) HTN (hypertension): Code(s): I10 - Essential (primary) hypertension Qualifiers: Hypertension type: essential hypertension Qualified Code(s): I10 - Essential (primary) hypertension Plan: Patient's blood pressure acceptable today in office. Has lost significant amount of weight since starting GLP 1. Does report feeling somewhat dizzy at times and wondering if this is his blood pressure. Will decrease his blood pressure med regime to 40 mg lisinopril, will discontinue hydrochlorothiazide Will continue his current dose of antihypertensive medication with goal blood pressure to be below 140/90 (2) DMII (diabetes mellitus, type 2): Code(s): E11.9 - Type 2 diabetes mellitus without complications Qualifiers: Diabetes mellitus complication status: without complication Diabetes mellitus fpc insulin use: without joint terminal attack controller use Qualified Code(s): E11.9 - Type 2 diabetes mellitus without complications Plan: Patient's type 2 diabetes now well controlled, has lost significant amount of weight since starting Ozempic. He continues to work on lifestyle modifications to reduce his A1c. Will continue his current dose of metformin at this time will continue to work on lifestyle modifications. Goal A1c to be below 7.0 (3) GERD (gastroesophageal reflux disease): Code(s): K21.9 - Gastro-esophageal reflux disease without esophagitis Qualifiers: Esophagitis presence: without esophagitis Qualified Code(s): K21.9 - Gastro-esophageal reflux disease without esophagitis Plan: Patient reports his GERD symptoms have been well maintained with daily use of Prilosec. Does report still having a short lived bout of nausea in the mornings. He has been trying to stay way from gastric irritants (4) Microalbuminuria: Code(s): R80.9 - Proteinuria, unspecified Plan: Continues to have elevated microalbuminuria. Has seen Nephrology the past. Will get ultrasound kidneys to evaluate for any cystic formations. (5) Family history of thyroid cancer: Code(s): Z80.8 - Family history of malignant neoplasm of other organs or systems Plan: Does report his father had thyroid cancer in his 60s. Will check patient's TSH (6) HLD (hyperlipidemia): Code(s): E78.5 - Hyperlipidemia, unspecified Qualifiers: Hyperlipidemia type: mixed hyperlipidemia Qualified Code(s): E78.2 - Mixed hyperlipidemia Plan: Most recent lipid panel showing excellent control of his total cholesterol and LDL. Goal LDL is to remain below 100. Will continue him on current dose of statin therapy Orders: Orders Comprehensive [place]. Panel Fast Today E11.9 - Type 2 diabetes mellitus without complications Microalbumin, Random (w Creat) Today R80.9 - Proteinuria, unspecified Complete Blood Count no Diff Today E11.9 - Type 2 diabetes mellitus without complications TSH reflex Free T4 Today Z80.8 - Family history of malignant neoplasm of other organs or systems Lipid Panel Today E78.2 - Mixed hyperlipidemia Prostate Specific Antigen Scr Today E78.2 - Mixed hyperlipidemia, Z12.5 - Encounter for screening for malignant neoplasm of prostate Medications: New lisinopril 40 mg PO DAILY 90 tabs 1RF 90 days I10 - Essential (primary) hypertension Discontinued lisinopril-hydrochlorothiazide 20-12.5 mg Discontinued Reason: Doctor's Order 1 tab PO BID 90 days 180 tabs 2RF I10 - Essential (primary) hypertension Patient Instructions: Goal: Blood pressure to remain below 140/90, LDL to remain below 100 Barriers: Adherence to physical activity and healthy eating habits Coding Level of Care Code Est Pt Prev Care 40-64y(21594) Diagnoses Essential hypertension I10 Hypertension type: essential hypertension Type 2 diabetes mellitus without complication, without long-term current use of insulin E11.9 Diabetes mellitus complication status: without complication Diabetes mellitus fpc insulin use: without joint terminal attack controller use Gastroesophageal reflux disease without esophagitis K21.9 Esophagitis presence: without esophagitis Microalbuminuria R80.9 Family history of thyroid cancer Z80.8 Mixed hyperlipidemia E78.2 Hyperlipidemia type: mixed hyperlipidemia Additional Codes JULIEN-7 Assessment Billing - JULIEN-7 Assessment Tool: JULIEN-7 Assessment [id number] ([id number])
== END 2024-03-29 08:48 | disposition home or self-care (01) ==
PROVIDERS: PCP Physician Assistant; Visit Provider Physician Assistant
DX: Z00.00 Encounter for general adult medical examination without abnormal findings (principal); I10 Essential (primary) hypertension; E11.9 Type 2 diabetes mellitus without complications; K21.9 Gastro-esophageal reflux disease without esophagitis; R80.9 Proteinuria, unspecified; Z80.8 Family history of malignant neoplasm of other organs or systems; E78.2 Mixed hyperlipidemia
CPT/HCPCS: 99396

== ENCOUNTER 2024-09-22 06:04 | Outpatient (REF) | payer BC, SELFPAY ==
--- OUTSIDE RECORDS SUMMARY | 2024-09-22 06:06 | XMS_ITS | Clinical Summary ---
Author Organization [facility] Facility Address [address] [address] Care Team Providers Care Forest Management Professor Name Role Phone Hunter Jarvis Primary Care Provider [phone] Allergies Active Allergy Reactions Criticality Noted Date Comments Erythromycin Rash Low 08/14/2021 Medications MegaRed Baird-3 Krill Oil 500 MG capsule Take 1 capsule by mouth 1 (one) time each day Active Acetaminophen (Tylenol) 325 MG capsule Active aspirin (ST CALDERON) 81 MG EC tablet Take 1 tablet by mouth 1 (one) time each day Active cholecalciferol (VITAMIN D-3) 25 MCG (1000 UT) capsule Take 1 capsule by mouth 1 (one) time each day Active coenzyme Q-10 10 MG capsule Take 1 capsule by mouth 1 (one) time each day Active lisinopril-hydr oCHLOROthiazide (PRINZIDE,ZESTO RETIC) 20-12.5 MG per tablet Take 2 tablets by mouth 1 (one) time each day 06/16/2019 Active metFORMIN XR (GLUCOPHAGE-XR) 500 MG 24 hr tablet Take 4 tablets by mouth 1 (one) time each day 09/04/2019 Active omeprazole OTC (PriLOSEC OTC) 20 MG EC tablet Take 1 tablet by mouth 1 (one) time each day Active rosuvastatin (CRESTOR) 20 MG tablet Take 1 tablet by mouth 1 (one) time each day 06/16/2019 Active Active Problems Problem Noted Date Diagnosed Date Hypertension 08/18/2021 Type 2 diabetes mellitus without complication Proteinuria 08/14/2021 Resolved Problems Problem Noted Date Diagnosed Date Resolved Date Chronic kidney disease stage 2 08/14/2021 08/18/2021 Hypertensive renal disease 08/14/2021 0 08/18/2021 Immunizations Name Administration Dates Next Due Pneumococcal Polysaccharide 11/23/2018 Family History Medical History Relation Comments Diabetes Father Hypertension Father Relation Status Comments Father Social History Tobacco Use Types Packs/Day Years Used Date Smoking Tobacco: Never Alcohol Use Standard Drinks/Week Comments Yes 0 (1 standard drink = 0.6 oz pur e alcohol) Sex and Gender Information Value Date Recorded Sex Assigned at Not on file Legal Sex Male 4:56 PM EST Gender Identity Not on file Sexual Orientation Not on file Last Filed Vital Signs Vital Sign Reading Time Taken Comments Blood Pressure 156/28 08/19/2020 12:00 PM EST Pulse 62 08/19/2020 12:00 PM EST Temperature - - Respiratory Rate - - Oxygen Saturation 98% 08/19/2020 12:00 PM EST Inhaled Oxygen Concentration - - Weight 96.6 kg (213 lb) 08/19/2020 12:00 PM EST Height 167.6 cm (5' 6 ) 08/19/2020 12:00 PM EST Body Mass Index 34.38 08/19/2020 12:00 PM EST Plan of Treatment Health Maintenance Due Date Last Done Comments Colorectal Cancer Screening: Annual FOBT 2008 Colorectal Cancer Screening: Colonoscopy 2008 Colorectal Cancer Screening: Sigmoidoscopy 2008 Diabetes: Hemoglobin A1C 08/18/2021 021, 03/16/2019 Diabetes: Ophthalmology Exam 08/18/2021 Diabetes: Pedal Pulse Checked 08/18/2021 Diabetes: Sensory Foot Exam 08/18/2021 Diabetes: Visual Foot Exam 08/18/2021 Influenza Vaccine (#1) 2024 Pneumococcal Vaccine: 65+ Years (2 of 2 - PCV) 2024 11/23/2018 Pneumococcal Vaccine: Pediatrics (0 to 5 Years) and At-Risk Patients (6 to 64 Years) Aged Out 11/23/2018 No longer eligible b ased on patient's age to complete this topic Hepatitis B Vaccine Aged Out No longe r eligible based on patient's age to complete this topic Procedures Procedure Name Priority Date/Time Associated Diagnosis Comments EXT RESULT ENTRY Routine 04/01/2021 from Last 3 Months or Most Recently Relevant to Health Maintenance Results * (ABNORMAL) EXT RESULT ENTRY (04/01/2021) WBC 7.3 3.3 - 10.0 10*3/ML Red Blood Cell Count 4.92 Hemoglobin 14.7 13.5 - 17.5 Hematocrit 42.7 41.0 - 53.0 Platelets 162 150 - 399 10*3/UL MCV 86.8 82.0 - 108.0 Sodium 141 137 - 147 Potassium 4.0 3.4 - 5.5 Chloride 101 99 - 108 Bicarbonate (CO2) 29 22 - 30 mmol/L Anion Gap 15 <=30 MMOL/L Glucose 157 60 - 200 BUN 16 4 - 21 mg/dL Creatinine 0.98 0.60 - 1.30 mg/dL Total Protein 7.1 6.4 - 8.2 G/DL Albumin 4.5 3.5 - 5.0 g/dL Calcium 9.6 8.7 - 10.7 mg/dL eGFR Non-Afr Serbian >60 Total Bilirubin 0.6 MG/DL ALT (SGPT) 52 U/L AST (SGOT) 28 U/L Alkaline Phosphatase 51 U/L (TSH) Thyroid Stimulating Hormone 2.27 PSA, Free 0.56 ng/mL Hemoglobin A1C 8.0(A) 4.0 - 6.0 Triglycerides 152 40 - 160 Cholesterol 169 0 - 200 HDL 41 35 - 70 MG/DL LDL Calculated 98 0 - 160 mg/dL 04/01/2021 [facility] Provider LAB BLOOD ORDERABLES Sera l Result from Last 3 Months or Most Recently Relevant to Health Maintenance Insurance [facility] Care Teams Forest Management Professor Relationship Specialty Start Date End Date Hunter Jarvis PA [address] [place] [address], [address] [place] [address] PCP - General Physician Regulator Pin Inserter 08/14/21
[2024-09-22 07:48] LABS: Hematocrit 43.6 % (42.0-52.0); Mean Corpuscular HGB Conc 34.4 g/dl (31.0-36.0); Mean Corpuscular Hemoglobin 30.3 pg (27.0-33.0); Mean Corpuscular Volume 88.1 fL (80.0-98.0); Mean Platelet Volume 12.5 fL (9.4-12.4); Platelet Count 176 X10*3/uL (160-400); Red Blood Count 4.95 X10*6/uL (4.60-5.80); Red Cell Distribution Width 13.3 % (11.0-16.0); White Blood Count 7.2 X10*3/uL (4.8-10.8)
[2024-09-22 08:37] LABS: Creatinine Urine 23.77 mg/dL; Microalbum/Creatinine Ratio Ur 323.9 ug/mg cr (<30)
[2024-09-22 08:52] LABS: Alanine Aminotransferase 22 U/L (0-40); Albumin Level 4.5 g/dL (3.5-5.0); Alkaline Phosphatase 66 U/L (39-117); Anion Gap 12 (12-20); Aspartate Amino Transferase 21 U/L (5-37); Bilirubin Total 0.6 mg/dL (0.0-1.0); Blood Urea Nitrogen 18 mg/dL (9-16); Calcium 9.6 mg/dL (8.4-10.2); Carbon Dioxide 27 mmol/L (22-29); Chloride 105 mmol/L (96-108); Cholesterol 170 mg/dL (<200); Estimated Glomerular Filt Rate > 60; Glucose Fasting 103 mg/dL (60-99); HDL Cholesterol 46 mg/dL (>40); LDL Cholesterol Calculated 106 mg/dL (<100); Potassium 3.9 mmol/L (3.3-5.1); Sodium 140 mmol/L (135-145); Total Protein 7.7 g/dL (6.5-8.0); Triglycerides 90 mg/dL (<150)
[2024-09-22 08:56] LABS: Prostate Specific Antigen Scr 0.98 ng/mL (<0.05-4.0)
[2024-09-22 08:58] LABS: TSH reflex Free T4 2.26 uIU/mL (0.32-4.0)
== END 2024-09-22 06:05 | disposition home or self-care (01) ==
LOC: HO.LAB 06:04
PROVIDERS: PCP Physician Assistant; Visit Provider Physician Assistant
DX: E11.9 Type 2 diabetes mellitus without complications (principal); R80.9 Proteinuria, unspecified; E78.2 Mixed hyperlipidemia; Z12.5 Encounter for screening for malignant neoplasm of prostate; Z80.8 Family history of malignant neoplasm of other organs or systems
CPT/HCPCS: 36415; 80053; 80061; 82043; 82570; 84153; 84443; 85027

== ENCOUNTER 2024-09-27 08:00 | Outpatient (AMB) | payer BC, SELFPAY ==
--- OUTSIDE RECORDS SUMMARY | 2024-09-27 08:07 | XMS_ITS | Clinical Summary ---
Author Organization [facility] Facility Address [address] [address] Care Team Providers Care Bead Wrapper Name Role Phone Hunter Jarvis Primary Care Provider Allergies Active Allergy Reactions Criticality Noted Date Comments Erythromycin Rash Low 08/14/2021 Medications MegaRed [place]-3 Krill Oil 500 MG capsule Take 1 [...] 9.6 8.7 - 10.7 mg/dL eGFR Non-Afr Vincentian >60 Total Bilirubin 0.6 MG/DL ALT (SGPT) 52 U/L AST (SGOT) 28 U/L Alkaline Phosphatase 51 U/L (TSH) Thyroid Stimulating Hormone 2.27 PSA, Free 0.56 ng/mL Hemoglobin A1C 8.0(A) 4.0 - 6.0 Triglycerides 152 40 - 160 Cholesterol 169 0 - 200 HDL 41 35 - 70 MG/DL LDL Calculated 98 0 - 160 mg/dL 04/01/2021 [facility] Provider LAB BLOOD ORDERABLES Sera l Result from Last 3 Months or Most Recently Relevant to Health Maintenance Insurance [facility] Care Teams Bead Wrapper Relationship Specialty Start Date End Date Hunter Jarvis PA [address] [place] [address], [address] [place] [address] PCP - General Physician Computer Programming Manager 08/14/21
--- NOTE | 2024-09-27 08:23 | A.OFFPC_ITS ---
Vital Signs 09/27/24 08:26 Height 5 ft 6 in Weight 178 lb 4 oz BMI 28.8 BP 138/80 Blood Pressure Location Lt brachial Position Sitting Pulse 56 Pulse Source Pulse Oximeter Temp 97.2 F Temp Source Temporal Artery Scan Pulse Oximetry (%) 96 Oxygen Delivery Method Room Air Intake Visit Reasons: f/u DMII / HLD Intake Note: Patient is here to follow up on DMII, HLD. Clinical Pathologist Required: No Manager Of Quality: Not Required per policy Accompanied by: Self / Same As Patient Allergies erythromycin base Allergy (Unknown, Verified 09/27/24 08:32) Rash Medication List - Last Reconciled 09/27/24 by Hunter Jarvis PA-C cholecalciferol (vitamin D3) 25 mcg PO DAILY lisinopril 40 mg PO DAILY 90 days omeprazole magnesium (Prilosec OTC) 20 mg PO DAILY rosuvastatin 20 mg PO DAILY semaglutide (Ozempic) 0.5 mg (0.736 mL) subcut QWEEK 4 weeks Tobacco use date assessed: 09/27/24 Fall risk assessment: No Falls in past year Last assessed Fall Risk: 09/27/24 Dental Screening Dental Screen Date: 09/27/24 Did you have a dental visit in the last 12 months?: No Did you have a dental problem in the last 6 months where you did not have access to dental care?: No Was dental information given to patient?: No HPI f/u DMII / HLD HPI Details Maurice is a 64 y/o M here today for a follow-up visit. ? Pmhx significant fror HTN, HLd, Obesity, Cervical spine disc disease, DMII. ? .. ? DMII:? Type 2 diabetes has been much better controlled, today's A1c of 5.5. he reports sugars have been much better., has lost significant amount of weight since starting Ozempic. He continues on Ozempic 0.5 mg weekly Patient continues to have microalbuminuria though has improved- of note we discontinued his hydrochlorothiazide ? . ? HTN: Reports his blood pressure has been stable, Systolics 120- 140s. Blood pressure today in office acceptable .? Patient denies any headaches, vision issues or chest discomfort. He is currently on lisinopril ? .. ? HLD: Patient continues on statin therapy without side effect. Most recent lipid panel showing excellent control of his total cholesterol LDL . .. 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 Was also found to cervical disc disease with to herniated disc in his cervical spine. Since then he has not been able to work and has been on disability. Has seen many technician inventory specialist and paint specialist and was on narcotic pain medication for a few years though has been able to wean himself off. Has been able to manage his pain recently with marijuana. Today presents paperwork for student loan forgiveness due to his disability and not able to work. ? . ? .. ? GERD : Report its controlled on PPI ( Prilosec 20 mg) .? He is followed by hand collator and gets an EGD done every 5 years Laboratory Tests 09/15/23 09/22/23 03/24/24 06:18 08:38 06:09 RBC Hgb Fasting Glucose 115 H Hgb A1c (Clinic) 6.7 H Cholesterol LDL Cholesterol, C alc PSA Screen TSH Urine Microalbumin 529.0 09/22/24 09/22/24 06:10 06:16 RBC 4.95 Hgb 15.0 Fasting Glucose 103 H Hgb A1c (Clinic) Cholesterol 170 LDL Cholesterol, C alc 106 H PSA Screen 0.98 TSH 2.26 Urine Microalbumin 77.0 PFSH Surgical History History of surgery History of arthroscopy of shoulder Family History Father Diabetes Hypertension Liver tumor or cancer Thyroid cancer Mother No problems noted. Sister Eye cancer Social History Housing: House Alcohol intake: never Patient Tobacco Use Status: Never used Tobacco Tobacco use type: Cigarette e-Cigarette/Vaping Use: Never Used Second Hand Smoke Exposure: No Substance Use Type: Marijuana service: No Current occupational status: retired Cognitive needs: No Hearing needs: No Vision needs: No Questionnaire PHQ-9 Over the last 2 weeks, how often have you been bothered by any of the following problems? 1. Little interest or pleasure in doing things: not at all 2. Feeling down, depressed, or hopeless: not at all 3. Trouble falling or staying asleep, or sleeping too much: not at all 4. Feeling tired or having little energy: not at all 5. Poor appetite or overeating: not at all 6. Feeling bad about yourself - or that you are a failure or have let yourself or your family down: not at all 7. Trouble concentrating on things, such as reading the newspaper or watching television: not at all 8. Moving or speaking so slowly that other people could have noticed. Or the opposite - being so fidgety or restless that you have been moving around a lot more than usual: not at all 9. Thoughts that you would be better off or of hurting yourself in some way: not at all Total score: 0 Depression Screening Interpretation: Negative Depression Screening Done: Yes 90127 - PHQ-9 Billing: Yes Source: Developed by Drs. Christian Lorenzo, Emily Parham, Morro Soto and colleagues, with an educational jay jay from [employer]. Thrive Questionnaire Date Thrive assessed: 09/27/24 I am a: Patient What is your living situation today?: I have a steady place to live Within the past 12 months, did the food you bought not last and you didn't have the money to get more?: Never true Within the past 12 months, did you worry whether your food would run out before you got money to buy more?: Never true Do you have trouble paying for medicines?: No Do you have trouble getting transportation to medical appointments?: No Do you have trouble paying your heating and electricity bill?: No Do you have trouble taking care of your child, family member or friend?: No Do you have trouble with day-to-day activities such as bathing, preparing meals, shopping, managing finances, etc.?: No Are you currently unemployed and looking for a job?: No Are you interested in more education?: No Please select the resources that you would like help with: None Currently or been in a relationship where the following occur: No concerns reported THRIVE Score: 0 AUDIT C Alcohol Use Questionnaire (AUDIT-C) 1. How often do you have a drink containing alcohol?: Never Total Score: 0 JULIEN-7 AMB Questionnaire JULIEN-7 Date JULIEN - 7 assessed: 09/27/24 Feeling nervous, anxious, or on edge: 0 = Not at all Not being able to stop or control worryin = Not at all Worrying too much about different things: 0 = Not at all Trouble relaxin = Not at all Being so restless that it is hard to sit still: 0 = Not at all Becoming easily annoyed or irritable: 0 = Not at all Feeling afraid as if something awful might happen: 0 = Not at all Total JULIEN-7 score (0-4 normal; 5-9 mild; 10-14 moderate; 15-21 severe): 0 Source: Developed by Drs. Christian Lorenzo, Emily Parham, Morro Soto and colleagues, with an educational jay jay from [employer]. JULIEN-7 Assessment Billing JULIEN-7 Assessment Tool: JULIEN-7 Assessment 73311 Review of Systems Const Denies headache(s) Eyes Denies loss of vision ENT Denies vertigo, Denies dizziness, Denies headache(s) and Denies sore throat Card Denies chest pain, Denies leg edema and Denies lightheadedness Resp Denies cough, Denies hemoptysis and Denies wheezing GI Denies abdominal pain, Denies melena, Denies constipation, Denies diarrhea and Denies vomiting Denies dysuria, Denies urinary frequency and Denies urinary urgency Musc Denies arthralgias, Denies joint swelling, Denies numbness and Denies tingling Neuro Denies Abnormal speech present, Denies behavioral changes, Denies vertigo, Denies dizziness, Denies headache(s), Denies loss of vision, Denies memory loss, Denies numbness and Denies tingling Psych Denies anxiety, Denies behavioral changes, Denies depression, Denies memory loss and Denies panic attacks Edward/Lymph Denies easy bleeding and Denies easy bruising Aller/Immun Denies wheezing Physical exam (Primary Care) Vital Signs: Last Vital Signs Temp 97.2 F 09/27/24 08:26 Pulse 56 09/27/24 08:26 BP 138/80 09/27/24 08:26 Pulse Ox 96 09/27/24 08:26 Oxygen Delivery Method Room Air 09/27/24 08:26 BMI result Body Mass Index 28.8 Tobacco/Smoking Status: Tobacco use Status Tobacco use date assessed 09/27/24 09/27/24 08:32 Patient Tobacco Use Status Never used Tobacco 09/27/24 08:23 Tobacco use type Cigarette 09/27/24 08:23 e-Cigarette/Vaping Use Never Used 09/27/24 08:23 PHQ-9: PHQ-9 Score PHQ-9: Total score 0 09/27/24 08:40 Depression Screening Interpretation: Negative Thrive Assessment: Date of Thrive Assessment Date Thrive assessed 09/27/24 09/27/24 08:32 Currently or been in a relationship where the following occur: No concerns reported Const General: healthy appearing, no acute distress, alert and awake Nutritional Appearance: well nourished Orientation/consciousness: oriented to person, oriented to place and oriented to time HENMT Ears: TM's normal bilaterally General nose exam: Normal nasal mucous membranes and turbinates present Eyes Conjunctivae: conjunctivae normal Sclerae: sclerae normal Pupils: Equal, round and reactive pupils present Neck Neck: Yes no lymphadenopathy and Yes no JVD Thyroid: Thyroid normal Carotids: no bruits Resp Effort & Inspection: normal respiratory effort and not tachypneic Auscultation: no crackles, no rales, no rhonchi and no wheezes Cardio Rate: regular rate Rhythm: regular rhythm Heart sounds: no murmurs and normal S1 and S2 GI Palpation (GI): Soft to palpation, nontender, no hepatomegaly and no splenomegaly Auscultation: normal bowel sounds Skin General skin exam: no rashes or lesions noted and dry skin Neuro General: oriented to person, oriented to place and oriented to time Cranial nerves: Yes Equal, round and reactive pupils present Speech: No Abnormal speech present Gait exam (Neuro): Normal gait present Motor exam (neuro): no tremor noted Extrem Right upper extremity: full ROM Left upper extremity: full ROM Right lower extremity: full ROM; no edema Left lower extremity: full ROM; no edema Psych Mental Status: mental status grossly normal Speech and movement: Normal speech and movement present Affect: normal affect Attitude: cooperative Thought process: Normal thought process present Results AMB Hemoglobin A1c AMB Hemoglobin A1c 5.5 % Last Edit by IRA Wilson on 09/27/24 08:41 Results Reviewed Results Reviewed: Laboratory Last Values Hgb A1c (Clinic) 5.5 % (4.0-6.0) 09/27/24 08:24 Coding Level of Care Code Est Pt Level 4 (99614) Diagnoses Mixed hyperlipidemia E78.2 Hyperlipidemia type: mixed hyperlipidemia Type 2 diabetes mellitus without complication, without long-term current use of insulin E11.9 Diabetes mellitus complication status: without complication Diabetes mellitus long-term insulin use: without long-term use Essential hypertension I10 Hypertension type: essential hypertension Microalbuminuria R80.9 Additional Codes PHQ-9 - 80668 - PHQ-9 Billing: Yes ([id number]) JULIEN-7 Assessment Billing - JULIEN-7 Assessment Tool: JULIEN-7 Assessment 88303 ([id number]) Assessment & Plan Assessment & Plan (1) HLD (hyperlipidemia): Code(s): E78.5 - Hyperlipidemia, unspecified Category: Medical Qualifiers: Hyperlipidemia type: mixed hyperlipidemia Qualified Code(s): E78.2 - Mixed hyperlipidemia Plan: Patient's most recent lipid panel showing good control of his total cholesterol and LDL. Will continue his current dose of rosuvastatin 20 mg with goal LDL to remain below 100. (2) DMII (diabetes mellitus, type 2): Code(s): E11.9 - Type 2 diabetes mellitus without complications Category: Medical Qualifiers: Diabetes mellitus complication status: without complication Diabetes mellitus oysterman insulin use: without oysterman use Qualified Code(s): E11.9 - Type 2 diabetes mellitus without complications Plan: Patient's type 2 diabetes well controlled with A1c today at 5.5. Will continue his current dose of Ozempic 0.5 mg weekly. A1c is to remain below 7.0 (3) HTN (hypertension): Code(s): I10 - Essential (primary) hypertension Category: Medical Qualifiers: Hypertension type: essential hypertension Qualified Code(s): I10 - Essential (primary) hypertension Plan: Patient's blood pressure acceptable today in office. Will continue his current dose of lisinopril with goal blood pressure to remain below 140/90 (4) Microalbuminuria: Code(s): R80.9 - Proteinuria, unspecified Category: Medical Plan: Patient's microalbuminuria has much improved since discontinuing hydrochlorothiazide. Will continue to follow Orders: Orders AMB Hemoglobin A1c 09/27/24 E11.9 - Type 2 diabetes mellitus without complicat ions Microalbumin, Random (w Creat) 09/27/24 I10 - Essential (primary) hypertension Lipid Panel 09/27/24 E78.2 - Mixed hyperlipidemia Complete Blood Count no Diff 09/27/24 E11.9 - Type 2 diabetes mellitus without complications Comprehensive [place]. Panel Fast 09/27/24 E11.9 - Type 2 diabetes mellitus without complications Patient Instructions: Goal: Blood pressure to be below 140/90, LDL to be below 100 Barriers: Adherence to physical activity and healthy eating habits
[2024-09-27 08:26] VITALS: BP 138/80; PULSE 56; TEMP 36.2; O2SAT 96; BMI 28.8
== END 2024-09-27 08:55 | disposition home or self-care (01) ==
PROVIDERS: PCP Physician Assistant; Visit Provider Physician Assistant
DX: E78.2 Mixed hyperlipidemia (principal); E11.9 Type 2 diabetes mellitus without complications; I10 Essential (primary) hypertension; R80.9 Proteinuria, unspecified

== ENCOUNTER → 2024-09-27 08:00 | Outpatient (BNVA) | payer BC, SELFPAY | PROVIDERS: PCP Physician Assistant; Visit Provider Physician Assistant | DX: E78.2 Mixed hyperlipidemia (principal); E11.9 Type 2 diabetes mellitus without complications; I10 Essential (primary) hypertension; R80.9 Proteinuria, unspecified; Z79.899 Other long term (current) drug therapy | CPT/HCPCS: 83036; 96127 ==

== ENCOUNTER 2025-03-28 06:02 | Outpatient (REF) | payer BC, SELFPAY ==
--- OUTSIDE RECORDS SUMMARY | 2025-03-28 06:04 | XMS_ITS | Clinical Summary ---
Author Organization [facility] Facility Address [address] [address] Care Team Providers Care Estimator Project Manager Name Role Phone Hunter Jarvis Primary Care Provider [phone] Allergies Active Allergy Reactions Criticality Noted Date Comments Erythromycin Rash Low 08/14/2021 Medications MegaRed Hunter-3 Krill Oil 500 MG capsule Take 1 [...] Hypertensive renal disease 08/14/2021 0 08/18/2021 Immunizations Immunization Administration Dates Next Due Pneumococcal Polysaccharide 11/23/2018 [...] Colonoscopy 2008 Colorectal Cancer Screening: Sigmoidoscopy 2008 Pneumococcal Vaccine: 50+ Years (2 of 2 - PCV) 11/24/2019 11/23/2018 Diabetes: Hemoglobin A1C 08/18/2021 021, 03/16/2019 Diabetes: Ophthalmology Exam 08/18/2021 Diabetes: Pedal Pulse Checked 08/18/2021 Diabetes: Sensory Foot Exam 08/18/2021 Diabetes: Visual Foot Exam 08/18/2021 Influenza Vaccine (#1) 2025 Pneumococcal Vaccine: Peds ( 0 to 5 Years) and At-Risk Patients (6 to 49 Years) Discontinued 11/23/2018 Hepatitis B Vaccine Aged Out No longe [...] 9.6 8.7 - 10.7 mg/dL eGFR Non-Afr Vietnamese >60 Total Bilirubin 0.6 MG/DL ALT (SGPT) 52 U/L AST (SGOT) 28 U/L Alkaline Phosphatase 51 U/L (TSH) Thyroid Stimulating Hormone 2.27 PSA, Free 0.56 ng/mL Hemoglobin A1C 8.0(A) 4.0 - 6.0 Triglycerides 152 40 - 160 Cholesterol 169 0 - 200 HDL 41 35 - 70 MG/DL LDL Calculated 98 0 - 160 mg/dL 04/01/2021 Historical Provider LAB BLOOD ORDERABLES Sera l Result from Last 3 Months or Most Recently Relevant to Health Maintenance Insurance [facility] Care Teams Estimator Project Manager Relationship Specialty Start Date End Date Hunter Jarvis PA [address] [place] [address], [address] [place] [address] PCP - General Physician Subsea Engineer 08/14/21
[2025-03-28 07:42] LABS: Hematocrit 42.8 % (42.0-52.0); Hemoglobin 14.6 g/dl (14.0-18.0); Mean Corpuscular HGB Conc 34.1 g/dl (31.0-36.0); Mean Corpuscular Hemoglobin 30.4 pg (27.0-33.0); Mean Corpuscular Volume 89.0 fL (80.0-98.0); NRBC Abs Auto 0.000 X10*3/uL (0.0-0.012); NRBC Pct Auto 0.0 /100WBC (0.0-0.2); Platelet Count 163 X10*3/uL (160-400); Red Blood Count 4.81 X10*6/uL (4.60-5.80); White Blood Count 6.7 X10*3/uL (4.8-10.8)
[2025-03-28 08:11] LABS: Alanine Aminotransferase 24 U/L (0-40); Albumin Level 4.8 g/dL (3.5-5.0); Alkaline Phosphatase 61 U/L (39-117); Anion Gap 15 (12-20); Aspartate Amino Transferase 25 U/L (5-37); Blood Urea Nitrogen 19 mg/dL (9-16); Calcium 9.3 mg/dL (8.4-10.2); Carbon Dioxide 29 mmol/L (22-29); Chloride 104 mmol/L (96-108); Cholesterol 160 mg/dL (<200); Estimated Glomerular Filt Rate > 60; HDL Cholesterol 43 mg/dL (>40); Potassium 4.5 mmol/L (3.3-5.1); Sodium 143 mmol/L (135-145); Total Protein 7.4 g/dL (6.5-8.0); Triglycerides 63 mg/dL (<150)
[2025-03-28 09:20] LABS: Microalbum/Creatinine Ratio Ur 231.8 ug/mg cr (<30)
== END 2025-03-28 06:03 | disposition home or self-care (01) ==
LOC: HO.LAB 06:02
PROVIDERS: PCP Physician Assistant; Visit Provider Physician Assistant
DX: I10 Essential (primary) hypertension (principal); E78.2 Mixed hyperlipidemia; E11.9 Type 2 diabetes mellitus without complications
CPT/HCPCS: 36415; 80053; 80061; 82043; 82570; 85027

== ENCOUNTER 2025-04-02 08:34 | Outpatient (AMB) | payer BC, SELFPAY ==
[2025-04-02 09:02] VITALS: BP 116/82; PULSE 55; TEMP 36.3; O2SAT 97; BMI 28.0
--- NOTE | 2025-04-02 09:02 | A.OFFPC_ITS ---
Vital Signs 04/02/25 09:02 Height 5 ft 6 in Weight 173 lb 8 oz BMI 28.0 BP 116/82 Blood Pressure Location Lt brachial Position Sitting Pulse 55 Pulse Source Pulse Oximeter Temp 97.3 F Temp Source Temporal Artery Scan Pulse Oximetry (%) 97 Oxygen Delivery Method Room Air Intake Visit Reasons: ANNUAL Intake Note: Patient is here today for a physical. Science Manager Required: No Database Management Specialist: Not Required per policy Accompanied by: Self / Same As Patient Allergies erythromycin base Allergy (Unknown, Verified 04/02/25 09:22) Rash Medication List - Last Reconciled 04/02/25 by Hunter Jarvis PA-C cholecalciferol (vitamin D3) 25 mcg PO DAILY lisinopril 40 mg PO DAILY 90 days omeprazole magnesium (Prilosec OTC) 20 mg PO DAILY rosuvastatin 20 mg PO DAILY semaglutide (Ozempic) 0.5 mg (0.736 mL) subcut QWEEK 4 weeks Tobacco use date assessed: 04/02/25 Fall risk assessment: No Falls in past year Last assessed Fall Risk: 04/02/25 Dental Screening Dental Screen Date: 09/27/24 HPI ANNUAL HPI Details Maurice is a 64 y/o M here today for an annual physical ? Pmhx significant fror HTN, HLd, Obesity, Cervical spine disc disease, DMII. Concern-- > Postnasal drip began after a COVID-19 infection and starting Ozempic therapy. The patient experiences daily sinus drainage into the stomach, causing nausea or vomiting, and manages symptoms with a sinus pill at night. ? .. ? DMII:? Type 2 diabetes has been much better controlled, today's A1c of 5.6. he reports sugars have been much better., has lost significant amount of weight since starting Ozempic. He continues on Ozempic 0.5 mg weekly Patient continues to have microalbuminuria though has improved- of note we discontinued his hydrochlorothiazide ? . ? HTN: Reports his blood pressure has been stable, Systolics 120- 140s. Blood pressure today in office acceptable .? Patient denies any headaches, vision issues or chest discomfort. He is currently on lisinopril ? .. ? HLD: Patient continues on statin therapy without side effect. Most recent lipid panel showing excellent control of his total cholesterol LDL . . ? . ? .. ? GERD : Report its controlled on PPI ( Prilosec 20 mg) .? He is followed by mutuel clerk and gets an EGD done every 5 years Colonoscopy: Has gotten Colon 2021 Dr Hedrick- repeat 5 years.? Has been on PPI therapy for many years. ? .. ? Vaccines: Up-to-date with flu tetanus and Needs PCV-20 (declines today), Declines flu. UTD with COVID Vac, considering Shingrex PFSH Surgical History History of surgery History of arthroscopy of shoulder Family History Father Diabetes Hypertension Liver tumor or cancer Thyroid cancer Mother No problems noted. Sister Eye cancer Social History Housing: House Alcohol intake: never Patient Tobacco Use Status: Never used Tobacco Tobacco use type: Cigarette e-Cigarette/Vaping Use: Never Used Second Hand Smoke Exposure: No Substance Use Type: Marijuana service: No Current occupational status: retired Cognitive needs: No Hearing needs: No Vision needs: No Questionnaire Thrive Questionnaire Date Thrive assessed: 09/27/24 JULIEN-7 AMB Questionnaire JULIEN-7 Date JULIEN - 7 assessed: 09/27/24 Source: Developed by Drs. Christian Lorenzo, Emily Parham, Morro Soto and colleagues, with an educational jay jay from [employer] Review of Systems Const Denies excessive sweating, Denies fatigue and Denies headache(s) Eyes Denies loss of vision ENT Denies vertigo, Denies dizziness, Denies headache(s) and Denies sore throat Card Denies chest pain, Denies leg edema and Denies lightheadedness Resp Denies cough, Denies hemoptysis and Denies wheezing GI Denies abdominal pain, Denies melena, Denies constipation, Denies diarrhea and Denies vomiting Denies dysuria, Denies urinary frequency and Denies urinary urgency Musc Denies arthralgias, Denies joint swelling, Denies numbness and Denies tingling Skin/Breast Denies rash and Denies skin ulcer Neuro Denies Abnormal speech present, Denies behavioral changes, Denies vertigo, Denies dizziness, Denies headache(s), Denies loss of vision, Denies memory loss, Denies numbness and Denies tingling Psych Denies anxiety, Denies behavioral changes, Denies depression, Denies memory loss and Denies panic attacks Endo Denies excessive sweating, Denies fatigue, Denies flushing, Denies polydipsia and Denies polyuria Edward/Lymph Denies easy bleeding and Denies easy bruising Aller/Immun Denies wheezing Physical exam (Primary Care) Vital Signs: Last Vital Signs Temp 97.3 F 04/02/25 09:02 Pulse 55 04/02/25 09:02 BP 116/82 04/02/25 09:02 Pulse Ox 97 04/02/25 09:02 Oxygen Delivery Method Room Air 04/02/25 09:02 BMI result Body Mass Index 28.0 Tobacco/Smoking Status: Tobacco use Status Tobacco use date assessed 04/02/25 04/02/25 09:10 Patient Tobacco Use Status Never used Tobacco 04/02/25 09:10 Tobacco use type Cigarette 04/02/25 09:10 e-Cigarette/Vaping Use Never Used 04/02/25 09:10 Thrive Assessment: Date of Thrive Assessment Date Thrive assessed 09/27/24 04/02/25 09:10 Const General: healthy appearing, no acute distress, alert and awake Nutritional Appearance: well nourished Orientation/consciousness: oriented to person, oriented to place and oriented to time [facility] Head: Yes normocephalic Ears: TM's normal bilaterally General nose exam: Normal nasal mucous membranes and turbinates present Face and sinus: No sinus tenderness Mouth: Normal oral and palatal mucosa present and tongue normal Teeth and gingiva: dentition normal and gingiva normal Throat: Yes posterior oropharynx normal, Yes tonsils normal and Yes uvula midline Eyes Conjunctivae: conjunctivae normal Sclerae: sclerae normal Pupils: Equal, round and reactive pupils present EOM: EOMs intact bilaterally Direct Ophthalmoscopy: No no photophobia Neck Neck: Yes no lymphadenopathy and Yes no JVD Thyroid: Thyroid normal Carotids: no bruits Chest Chest palpation & inspection: no tenderness Resp Effort & Inspection: normal respiratory effort and not tachypneic Auscultation: no crackles, no rales, no rhonchi and no wheezes Cardio Jugular venous distension: no JVD Rate: regular rate Rhythm: regular rhythm Heart sounds: no murmurs and normal S1 and S2 Bruits: no carotid bruits Peripheral pulses: Peripheral pulses 2+ throughout GI Inspection: Yes normal to inspection, No abdominal wall ecchymosis and No visible herniation Palpation (GI): Soft to palpation, nontender, no hepatomegaly and no splenomegaly Auscultation: normal bowel sounds General: Yes no CVA tenderness Back/Spine/Pelvis Back: no CVA tenderness and No back tenderness Cervical Spine: cervical ROM normal Thoracic/Lumbar Spine: thoracic and lumbar spine normal to inspection, straight leg raise negative bilaterally, No thoraco-lumbar ROM limited and No lumbar spinal tenderness Skin General skin exam: no rashes or lesions noted and dry skin Lesions: no lesions Rashes: no rashes Wounds: no wounds Neuro General: oriented to person, oriented to place and oriented to time Cranial nerves: Yes Equal, round and reactive pupils present Cognition (Neuro): normal cognition Speech: No Abnormal speech present Gait exam (Neuro): Normal gait present Motor exam (neuro): no tremor noted Extrem Right upper extremity: full ROM Left upper extremity: full ROM Right lower extremity: full ROM; no edema Left lower extremity: full ROM; no edema Psych Appearance: grossly normal Mental Status: mental status grossly normal Speech and movement: Normal speech and movement present Affect: normal affect Attitude: cooperative Thought process: Normal thought process present Results AMB Hemoglobin A1c AMB Hemoglobin A1c 5.6 % Last Edit by IRA Wilson on 04/02/25 09:17 Results Reviewed Results Reviewed: Laboratory Last Values Hgb A1c (Clinic) 5.6 % (4.0-6.0) 04/02/25 09:01 Coding Level of Care Code Est Pt Prev Care >65y(68569) Diagnoses Annual physical exam Z00.00 Mixed hyperlipidemia E78.2 Hyperlipidemia type: mixed hyperlipidemia Type 2 diabetes mellitus without complication, without long-term current use of insulin E11.9 Diabetes mellitus complication status: without complication Diabetes mellitus keno terminal operator insulin use: without keno terminal operator use Essential hypertension I10 Hypertension type: essential hypertension Microalbuminuria R80.9 Seasonal allergic rhinitis, unspecified trigger J30.2 Allergic rhinitis seasonality: seasonal Allergic rhinitis trigger: unspecified Assessment & Plan Assessment & Plan (1) Annual physical exam: Code(s): Z00.00 - Encounter for general adult medical examination without abnormal findings Category: Medical Plan: As per HPI (2) HLD (hyperlipidemia): Code(s): E78.5 - Hyperlipidemia, unspecified Category: Medical Qualifiers: Hyperlipidemia type: mixed hyperlipidemia Qualified Code(s): E78.2 - Mixed hyperlipidemia Plan: Patient's most recent lipid panel showing good control of his total cholesterol and LDL. Will continue his current dose of rosuvastatin 20 mg with goal LDL to remain below 100. (3) DMII (diabetes mellitus, type 2): Code(s): E11.9 - Type 2 diabetes mellitus without complications Category: Medical Qualifiers: Diabetes mellitus complication status: without complication Diabetes mellitus chcf insulin use: without chcf use Qualified Code(s): E11.9 - Type 2 diabetes mellitus without complications Plan: Patient's type 2 diabetes well controlled with A1c acceptable. Will continue his current dose of Ozempic 0.5 mg weekly. A1c is to remain below 7.0 (4) HTN (hypertension): Code(s): I10 - Essential (primary) hypertension Category: Medical Qualifiers: Hypertension type: essential hypertension Qualified Code(s): I10 - Essential (primary) hypertension Plan: Patient's blood pressure acceptable today in office. Will continue his current dose of lisinopril with goal blood pressure to remain below 140/90 (5) Microalbuminuria: Code(s): R80.9 - Proteinuria, unspecified Category: Medical Plan: Patient's microalbuminuria has much improved since discontinuing hydrochlorothiazide. Will continue to follow (6) Allergic rhinitis: Code(s): J30.9 - Allergic rhinitis, unspecified Category: Medical Qualifiers: Allergic rhinitis seasonality: seasonal Allergic rhinitis trigger: unspecified Qualified Code(s): J30.2 - Other seasonal allergic rhinitis Plan: Postnasal drip is managed with a sinus pill at night, and allergy medication is advised. Orders: Orders Lipid Panel 04/02/25 E78.2 - Mixed hyperlipidemia Comprehensive [place]. Panel Fast 04/02/25 I10 - Essential (primary) hypertension AMB Hemoglobin A1c 04/02/25 E11.9 - Type 2 diabetes mellitus without complications Resp Allergy Profile Region I 04/02/25 J30.9 - Allergic rhinitis, unspecified, R05.9 - Cough, unspecified Complete Blood Count no Diff 04/02/25 I10 - Essential (primary) hypertension Microalbumin, Random (w Creat) 04/02/25 I10 - Essential (primary) hypertension Hemoglobin A1c 04/02/25 E11.9 - Type 2 diabetes mellitus without complications
--- OUTSIDE RECORDS SUMMARY | 2025-04-02 09:35 | XMS_ITS | Clinical Summary ---
Author Organization [facility] Facility Address [address] [address] Care Team Providers Care Water Pump Servicer Name Role Phone Hunter Jarvis Primary Care Provider [phone] Allergies Active Allergy Reactions Criticality Noted Date Comments Erythromycin Rash Low 08/14/2021 Medications MegaRed Point[place]-3 Krill Oil 500 MG capsule Take 1 [...] 9.6 8.7 - 10.7 mg/dL eGFR Non-Afr Prydeinig >60 Total Bilirubin 0.6 MG/DL ALT (SGPT) [...] Most Recently Relevant to Health Maintenance Insurance [facility] Care Teams Water Pump Servicer Relationship Specialty Start Date End Date Hunter Jarvis PA [address] [place] [address], [address] [place] [address] PCP - General Physician Compressor House Operator 08/14/21
== END 2025-04-02 09:49 | disposition home or self-care (01) ==
LOC: HO.HMCH 08:35
PROVIDERS: PCP Physician Assistant; Visit Provider Physician Assistant
DX: Z00.00 Encounter for general adult medical examination without abnormal findings (principal); E78.2 Mixed hyperlipidemia; E11.9 Type 2 diabetes mellitus without complications; I10 Essential (primary) hypertension; R80.9 Proteinuria, unspecified; J30.2 Other seasonal allergic rhinitis

== ENCOUNTER → 2025-04-02 08:34 | Outpatient (BNVA) | payer BC, SELFPAY | PROVIDERS: PCP Physician Assistant; Visit Provider Physician Assistant | DX: Z00.00 Encounter for general adult medical examination without abnormal findings (principal); E11.9 Type 2 diabetes mellitus without complications; I10 Essential (primary) hypertension; K21.9 Gastro-esophageal reflux disease without esophagitis; E78.2 Mixed hyperlipidemia; E66.9 Obesity, unspecified; R80.9 Proteinuria, unspecified; J30.2 Other seasonal allergic rhinitis; Z68.28 Body mass index [BMI] 28.0-28.9, adult | CPT/HCPCS: 83036 ==